=== PATIENT | male | born 1945 | race Caucasian/White ===

== ENCOUNTER 2017-11-05 08:28 | Inpatient (IN) | payer MEDICARE ==
[~2017-11-05] VITALS: Ht 185.4 cm; Wt 83.3 kg
--- NOTE | ~2017-11-05 | HEMODYNAMI ---
PATIENT:BERNARDO TRUJILLO MEDICAL RECORD: [id number] : 47 LOCATION:[facility] D.2121 ADMISSION DATE: 11/06/17 Generatedon:11/08/20179:57 Patient name: BERNARDO TRUJILLO Patient #: [id number] SSN: D OB: 1945 Date of study: 11/08/2017 Page: Of Hemodynamic Procedure Report Patient Data Patient Demographics Procedure consent was obtained First Name: BERNARDO Gender: Male Last Name: RONNIE : 1945 [facility] Initial: L Age: 72 year(s) Patient #: [id number] Race: Unknown Additional ID: [id number] Contact details Address: [address] [place] [address] [facility] State: [place] City: [place] Zip code: [address] Past Medical History Allergies Allergen Reaction Date Comments Reported Sulfa drugs 11/08/2017 Codeine 11/08/2017 Admission Admission Data Admission Date: 11/06/2017 Admission Time: 15:08 Room #: 2121 Lab Results Lab Result Date: 11/08/2017 Lab Result Time: 0:00 Biochemistry Name Units Result Min Max BUN mg/dl 24 --(----)-* 7 18 Creatinine mg/dl 1.5 --(----)-* 0.6 1.3 CBC Name Units Result Min Max Hemoglobin g/dl 16.2 --(--*-)-- 13.5 17.5 Procedure Procedure Types Cath Procedure Diagnostic Procedure LHC Coronaries w/Grafts Aortic Root Angiography PCI Procedure AMI/SVG/QUARTER DOPER PTCA or Stent SVG-BMS/JEMMA Initial Procedure Description Procedure Date Procedure Date: 11/08/2017 Procedure Start Time: 9:14 Procedure End Time: 9:57 Procedure Staff Name Function Shant Arora MD Performing Physician Honorio Sawyer RT Monitor Diana Bateman RT Scrub Jag Rivera RN Nurse Jeffrey Spencer RN Endband Sizer Procedure Data Cath Procedure Fluoroscopy Diagnostic fluoroscopy Total fluoroscopy Time: 8.9 time: 8.9 min min Diagnostic fluoroscopy Total fluoroscopy dose: dose: 1418 mGy 1418 mGy Contrast Material Contrast Material Type Amount (ml) Isovue 300 149 Entry Location Entry Primary Successful Side Size Upsize Upsize Entry Closure Succes sful Closure Location (Fr) 1 (Fr) 2 (Fr) Remarks Device Remarks Femoral Right 5 Fr 6 Fr Exoseal artery Short Diagnostic catheters Device Type Used For End Catheter Placement MULTIPACK JL 4.0 5Fr Left Coronary catheter Angiography DIAGNOSTIC JL 5 5Fr Left Coronary catheter ([id number]) Angiography DIAGNOSTIC AR MOD 5Fr SVG Angiography Catheter ([id number]) DIAGNOSTIC AR 2 MOD 5 Fr SVG Angiography catheter ([id number]) DIAGNOSTIC IM 5Fr SVG Angiography catheter ([id number]) MULTIPACK Pigtail 5 Fr LV Angiography catheter Procedure Complications No complications Procedure Medications Medication Administration Route Dosage 0.9% NaCl I.V. 100 ml/hr Oxygen NC 2 l/min Heparin Flush Bag added to field 2 bags (1000units/500ml NS) Lidocaine 2% added to field 20 Versed I.V. 1 mg Fentanyl I.V. 50 mcg Versed I.V. 1 mg Fentanyl I.V. 50 mcg Versed I.V. 1 mg Versed I.V. 1 mg Heparin Bolus I.V. 8200 units Plavix P.O. 600 mg Hemodynamics Rest HGB: 16.2 (g/dl) Heart Rate: 86 (bpm) Snapshots Pre Cath Intra NCS Post Cath Vital Signs Time Heart Resp SPO2 etCO2 NIBP Rhythm Pain Sedation Rate (ipm) (%) (mmHg) (mmHg) Status Level (bpm) 9:03:54 89 28 98 0 106/66(92) Paced 0 (11) 10(A) , No pain 9:09:09 88 13 97 0 99/58(79) Paced 0 (11) 10(A) , No pain 9:13:48 85 21 97 0 101/57(76) Paced 0 (11) 10(A) , No pain 9:18:28 86 16 93 0 96/52(83) Paced 0 (11) 10(A) , No pain 9:23:09 90 13 93 0 102/56(70) NSR 0 (11) 10(A) , No pain 9:27:50 90 12 96 0 107/60(69) NSR 0 (11) 10(A) , No pain 9:32:32 91 13 96 0 96/55(74) NSR 0 (11) 10(A) , No pain 9:37:13 90 13 96 0 104/58(77) NSR 0 (11) 10(A) , No pain 9:41:54 90 21 97 0 95/54(72) NSR 0 (11) 10(A) , No pain 9:46:32 91 17 95 0 98/62(68) NSR 0 (11) 10(A) , No pain 9:51:48 89 27 96 0 97/51(72) NSR 0 (11) 10(A) , No pain Medications Time Medication Route Dose Verified Delivered Reason Notes Effectiveness by by 9:12:16 0.9% NaCl I.V. 100 Jag Jag Per physician ml/hr Nicole Rivera RN RN 9:12:26 Oxygen NC 2 Jag Jag Per physician l/min Nicole Rivera RN RN 9:12:40 Heparin Flush added 2 Jag Jag used for Bag to bags Nicole Rivera procedure (1000units/500ml RN RN NS) 9:12:51 Lidocaine 2% added 20ml Jag Jag for local to vial Lorsusan Rivera anesthetic field RN RN 9:13:00 Versed I.V. 1 mg Jag Jag for sedation Nicole Rivera RN RN 9:13:09 Fentanyl I.V. 50 Jag Jag for sedation mcg Nicole Rivera RN RN 9:16:43 Versed I.V. 1 mg Jag Jag for sedation Nicole Rivera RN RN 9:16:49 Fentanyl I.V. 50 Jag Jag for sedation mcg Nicole Rivera RN RN 9:18:33 Versed I.V. 1 mg Jag Jag for sedation Nicole Rivera RN RN 9:35:25 Versed I.V. 1 mg Jag Jag for sedation Nicole Rivera RN RN 9:44:14 Heparin Bolus I.V. 8,200 Jag Jag for units Nicole Rivera anticoagulation RN RN 9:56:46 Plavix P.O. 600 Jag Jag for mg Nicole Rivera antiplatelet RN RN therapy Procedure Log Time Note 8:50:54 Jeffrey Spencer RN sent for patient. Start room use. 8:55:29 Signed procedure consent form obtained from patient. 8:56:09 Time tracking: Regular hours (M-F 7:00 - 5:00) 8:56:12 Plan of Care:Hemodynamics will remain stable., Cardiac rhythm will remain stable., Comfort level will be maintained., Respiratory function will remain adequate., Patient/ family verbilizes understanding of procedure., Procedure tolerated without complication., Recovers from procedure without complications.. 8:57:41 Patient received from Med II to CCL 1 Alert and oriented. Tansferred to table in Supine position. 8:57:42 Warm blankets applied, and nancy hugger turned on for patient comfort. 8:57:43 Correct patient and procedure confirmed by team. 8:57:44 ECG and BP/O2 sat monitors applied to patient. 9:01:53 Vital chart was started 9:03:42 Baseline sample Acquired. 9:03:45 Rhythm: sinus rhythm 9:03:46 Full Disclosure recording started 9:04:03 H&P Date Dictated: 11/07/2017 Within 30 days and on chart.. 9:04:04 Pre-procedure instructions explained to patient. 9:04:04 Pre-op teaching completed and patient verbalized understanding. 9:04:20 Family unavailable. 9:04:24 Patient NPO since Midnight. 9:04:33 Patient allergic to Sulfa drugs 9:04:39 Patient allergic to Codeine 9:04:41 Is the patient allergic to Iodine/contrast media? No. 9:04:46 Is patient on blood thinner?Yes 9:05:40 Use device set Femoral Dx 9:05:41 ACIST Syringe (10843) opened to sterile field. 9:05:41 Bag Decanter (2002) opened to sterile field. 9:05:41 Medline Cath Pack ([id number]) opened to sterile field. 9:05:42 DIAGNOSTIC WIRE .035 260cm J wire (688624) opened to sterile field. 9:05:43 ACIST Hand Control (96762) opened to sterile field. 9:05:44 ACIST Manifold (21831) opened to sterile field. 9:05:44 DIAGNOSTIC Multipack 5Fr catheter set ([id number]) opened to sterile field. 9:05:45 Tegaderm 4 x 4 (1626W) opened to sterile field. 9:05:48 SHEATH Prelude 5Fr 0.035 (EEG-5X-42-035) opened to sterile field. 9:06:22 Patient diabetic? No. 9:06:24 ----Pre-sedation anethsthesia assessment.---- 9:06:26 Previous problem with sedation/anesthesia? No ? 9:06:28 Snore? Yes 9:06:30 Sleep apnea? No 9:06:31 Deviated septum? No 9:06:33 Opens mouth fully? Yes 9:06:35 Sticks out tongue? Yes 9:06:37 Airway obstruction? No ? 9:06:40 Dentures? Yes out 9:07:02 Pre procedure: right dorsailis pedis pulse 1+ Palpable, but thready & weak; easily obliterated 9:07:08 Patient pain scale 0/10 ?. 9:07:26 IV patent on arrival in left hand with 0.9% NaCl at 10ml/hr. 9:10:08 Lab Result : BUN 24 mg/dl 9:10:08 Lab Result : Hemoglobin 16.2 g/dl 9:10:08 Lab Result : Creatinine 1.5 mg/dl 9:10:13 Lab results completed and on chart. 9:10:16 Right groin area was prepped with chlora-prep and draped in sterile fashion 9:10:17 Alarms reviewed by R. N. 9:10:18 Sharps counted by scrub and verified by R.N. 9:10:21 Physician arrived 9:10:21 --------ALL STOP TIME OUT------ 9:10:22 Final Timeout: patient, procedure, and site verified with staff and physician. All members of the team are in agreement. 9:10:23 Right groin site verified by team. 9:10:26 Physical assessment completed. ASA score P 2 - A patient with mild systemic disease as per Shant Arora MD. 9:10:29 Sedation plan: IV Moderate Sedation Medication:Versed, Fentanyl 9:12:16 0.9% NaCl 100 ml/hr I.V. was administered by Jag Rivera RN; Per physician; 9:12:26 Oxygen 2 l/min NC was administered by Jag Rivera RN; Per physician; 9:12:40 Heparin Flush Bag (1000units/500ml NS) 2 bags added to field was administered by Jag Rivera RN; used for procedure; 9:12:51 Lidocaine 2% 20ml vial added to field was administered by Jag Rivera RN; for local anesthetic; 9:13:00 Versed 1 mg I.V. was administered by Jag Rivera RN; for sedation; 9:13:09 Fentanyl 50 mcg I.V. was administered by Jag Rivera RN; for sedation; 9:14:25 Procedure started. 9:14:32 Local anesthetic to right femoral artery with Lidocaine 2% by Shant Arora MD.INITIAL ACCESS ONLY 9:14:41 A 5 Fr sheath was inserted into the Right Femoral artery 9:16:43 Versed 1 mg I.V. was administered by Jag Rivera RN; for sedation; 9:16:49 Fentanyl 50 mcg I.V. was administered by Jag Rivera RN; for sedation; 9:18:29 Zero performed for pressure channel P1 9:18:33 Versed 1 mg I.V. was administered by Jag Rivera RN; for sedation; 9:20:18 A MULTIPACK JL 4.0 5Fr catheter was advanced over the wire and used for Left Coronary Angiography. 9:20:55 Catheter removed. 9:21:07 A DIAGNOSTIC JL 5 5Fr catheter ([id number]) was advanced over the wire and used for Left Coronary Angiography. 9:22:42 LCA angiography performed. 9:22:44 Catheter removed. 9:23:05 A DIAGNOSTIC AR MOD 5Fr Catheter ([id number]) was advanced over the wire and used for SVG Angiography. 9:24:10 RCA angiography performed. 9:24:33 SVG to RCA angiography performed. 9:25:46 SVG to Diag angiography performed. 9:26:18 SVG to LAD angiography performed. 9:28:17 Catheter removed. 9:28:50 A DIAGNOSTIC AR 2 MOD 5 Fr catheter ([id number]) was advanced over the wire and used for SVG Angiography. 9:32:00 SVG to LAD angiography performed. 9:34:59 Catheter removed. 9:35:10 A DIAGNOSTIC IM 5Fr catheter ([id number]) was advanced over the wire and used for SVG Angiography. 9:35:25 Versed 1 mg I.V. was administered by Jag Lorigan RN; for sedation; 9:35:52 GONSALVES to LAD angiography performed. 9:36:09 GONSALVES to LAD angiography performed. 9:37:18 Catheter removed. 9:37:28 A MULTIPACK Pigtail 5 Fr catheter was advanced over the wire and used for LV Angiography. 9:37:36 Aortic Root visualized 9:37:51 Procedure type changed to Cath procedure, Diagnostic procedure, LHC, Coronaries w/Grafts, Aortic Root Angiography, PCI procedure, AMI/SVG/QUARTER DOPER PTCA or Stent, SVG-BMS/JEMMA Initial 9:38:40 Catheter removed. 9:42:07 SHEATH 6Fr Prelude ([id number]) opened to sterile field. 9:42:07 INFLATOR Merit BasixCompak (QY6603) opened to sterile field. 9:42:07 BMW 300cm Flushing 2 J wire (1367005Q) opened to sterile field. 9:42:08 GUIDE 6FR AR 2.0 catheter (SG3BU33) opened to sterile field. 9:42:09 TUBING High Pressure Extension Tubing (Viva Dengi) (XL9522Q) opened to sterile field. 9:42:23 Sheath upsized to a 6 Fr Short. 9:42:34 6 Fr AR 2.0 guide catheter was inserted over the wire 9:42:49 BMW wire advanced. 9:44:14 Heparin Bolus 8,200 units I.V. was administered by Jag Rivera RN; for anticoagulation; 9:50:03 Place stent Inflation Number: 1 A INTEGRITY OTW 3.5 X 12 stent ([id number]) was prepped and advanced across the Aorta Left -> 1st Diag. The stent was deployed at 14 ZULLY for 0:26 (min:sec). 9:50:45 Stent catheter was removed intact over wire. 9:50:46 Wire removed. 9:50:50 Guide catheter removed. 9:50:57 Contrast amount:Isovue 300 149ml. 9:51:04 Sheath removed intact; hemostasis achieved with Exoseal to the Right Femoral artery. 9:51:21 EXOSEAL 6Fr (EX600) opened to sterile field. 9:51:25 Procedure ended.(Physican Out) 9:52:02 Fluoroscopy time 08.90 minutes. 9:52:07 Fluoroscopy dose: 1418 mGy 9:52:07 Flurop Dose total: 1418 9:52:09 Sharps counted by scrub and verified by R.N. 9:52:10 Insertion/operative site no bleeding no hematoma. 9:52:13 Post-op/insertion site Right Femoral artery dressed using a 4 x 4 and Tegaderm. 9:52:17 Post right femoral artery:stable 9:52:18 Post Procedure Pulses reassessed and unchanged 9:52:20 Post procedure: right dorsailis pedis pulse 1+ Palpable, but thready & weak; easily obliterated. 9:52:24 Post procedure rhythm: sinus rhythm 9:52:25 Post procedure instruction explained to patient.Patient verbalizes understanding. 9:52:26 Procedure and supply charges have been captured, reviewed, submitted and are correct. 9:52:49 Procedure Complication : No complications 9:52:53 Vital chart was stopped 9:52:53 See physician's report for complete and final results. 9:53:09 Report given to PCU. 9:53:14 Patient transfered to PCU with Bed. 9:56:46 Plavix 600 mg P.O. was administered by Jag Rivera RN; for antiplatelet therapy; 9:57:12 Procedure ended. 9:57:12 Full Disclosure recording stopped 9:57:20 ACC-PCI Only Patient was given prescriptions, or instructed by Shant Arora MD to start/continue the following medications upon discharge: Plavix 9:57:21 End room use (Document Last) Intervention Summary Intervention Notes Time ActionType Lesion and Equipment Action# Pressure Duration Attributes Used 9:50:03 Place stent Aorta Left INTEGRITY 1 14 00:26 -> 1st Diag OTW 3.5 X 12 stent ([id number]) Device Usage Item Name Manufacture Quantity Catalog Number Hospital Part Current M inimal Lot# / Charge Number Stock Stock Serial# Code ACIST Syringe Acist 1 46485 002725 812664 965700 2 0 (51851) Medical Systems Inc Bag Decanter Microtek 1 559559 45130 296968 5 () Medical Inc. Medline Cath Cardinal 1 [id number] 933975 66792 808362 5 Veros Systems ([id number]) DIAGNOSTIC WIRE [facility] [place] 1 221906 167661 080296 039319 3 0 .035 260cm J wire (023935) ACIST Hand Acist 1 15522 505594 069972 501498 5 Control (25769) Medical Systems Inc ACIST Manifold Acist 1 37471 014220 582446 619588 5 (46036) Medical Systems Inc DIAGNOSTIC Cardinal 1 NO0531 678183 71509 869123 3 0 Multipack 5Fr Health catheter set (GD1009) Tegaderm 4 x 4 3M 1 1626W 809604 069412 752074 5 (1626W) SHEATH Prelude Merit 1 GRO-4G-41-035 746294 254938 642884 5 5Fr 0.035 Medical (HHU-6Z-04-035) MULTIPACK JL Cardinal 1 039968 5 4.0 5Fr Health catheter DIAGNOSTIC JL 5 Cardinal 1 117823O 811810 865339 083412 5 5Fr catheter Health (085543I) DIAGNOSTIC AR Cardinal 1 710239P 297121 247523 676221 1 5 MOD 5Fr Health Catheter (604695H) DIAGNOSTIC AR 2 Cardinal 1 [id number] 413451 056114 057565 2 0 MOD 5 Fr Health catheter (930800P) DIAGNOSTIC IM Cardinal 1 155082I 352615 425098 171438 5 5Fr catheter Health (275946G) MULTIPACK Cardinal 1 955350 5 Pigtail 5 Fr Health catheter SHEATH 6Fr Merit 1 [id number] 106472 565931 603558 5 Prelude Medical ([id number]) INFLATOR Merit Merit 1 IC2942 784149 157815 394184 1 5 BasixData Virtuality Medical (HE7102) BMW 300cm Licea 1 [id number] 803468 301145 581551 5 Flushing 2 J Vascular wire (0039671U) GUIDE 6FR AR Medtronic 1 [id number] 552629 40190 993268 1 2.0 catheter (PC0BK64) TUBING High Merit 1 [id number] 784217 57246 612308 1 0 Pressure Medical Extension Tubing (Arora) (UL3163P) INTEGRITY OTW Medtronic 1 [id number] 506634 705290 3 [id number] 3.5 X 12 stent ([id number]) EXOSEAL 6Fr Cardinal 1 EX600 791005 318660 969090 1 0 (EX600) Health Signature Audit [place] Stage Time Signature Unsigned Intra-Procedure 11/08/2017 Honorio Sawyer RT(R) 9:57:47 AM Signatures Monitor : Honorio Sawyer RT Signature : Date : Time : [address] [address]
[~2017-11-05 08:28] MED LIST: ACETAMINOPHEN500 M1 PO; ALDACTONE25 MG PO; ALTACE5 MG PO; APRESOLINE10 MG PO; BAYER CHEWABLE81 MG PO; BISCOLAX10 MG/SUPP RC; BOUDREAUXS113 GM TP; BUMEX 1 MG TAB1 MG PO; CHLORASEPTIC20 ML PO; CORDARONE200 MG PO; COUMADIN10 MG PO; COUMADIN5 MG PO; COUMADIN7.5 MG PO; D5W 1000 ML I1000 ML IV; DEXILANT60 MG PO; DUONEB 2.5-0.5 M3 ML NEB; FOLBIC; IPRAT-ALBUT 0.5-3 ML NEB; LACTINEX C1 TAB.CHEW PO; LEXAPRO20 MG PO; LOMOTIL TABLET1 TAB PO; LOVENOX80 MG/0.8 SQ; MIRALAX17 GM PO; NARCAN INJ0.4 MG/ML IV; NORCO 10/325 TA1 TA1 PO; ONDANSETRON4 MG/2 M3 IV; PLAVIX75 MG PO; PROTONIX40 MG PO; SENOKOT-S TABLE1 TAB PO; TRICOR145 MG PO; TYLENOL650 MG RC; TYLOX 5/500 CAP1 CAP PO; XANAX0.5 MG PO; XANAX1 MG PO
[2017-11-05 09:00] VITALS: BP 152/68
[2017-11-05 09:51] LABS: BASOPHILS 0.3 % (0-2); EOSINOPHILS 0 % (0-7); HEMATOCRIT 48.8 % (42.0-54.0); HEMOGLOBIN 16.7 g/dL (13.5-17.5); IMMATURE GRANULOCYTES 0.2 % (0-5); LYMPHOCYTES 9.5 % (15-50); MCH 30.8 pg (26.0-34.0); MCHC 34.2 g/dL (31.0-37.0); MEAN PLATELET VOLUME 10.2 fL (7.4-10.4); MONOCYTES 8.7 % (2-11); NEUTROPHILS 81.3 % (40-80); RBC 5.42 10x6/uL (4.20-6.10); RDW 15.5 % (11.5-14.5)
[2017-11-05 09:53] LABS: PLATELET COUNT 339 10x3/uL (130-400)
[2017-11-05 10:00] VITALS: BP 161/76
[2017-11-05 10:07] LABS: ALBUMIN 3.9 g/dL (3.4-5.0); ALKALINE PHOSPHATASE 80 U/L (46-116); ALT (SGPT) 17 U/L (10-68); BILIRUBIN - TOTAL 0.82 mg/dL (0.2-1.3); CALC OSMOLALITY 289 mosm/kg (275-300); CALCIUM 8.9 mg/dL (8.5-10.1); CHLORIDE - SERUM 105 mmol/L (98-107); CREATININE - SERUM 1.5 mg/dL (0.6-1.3); GLUCOSE 141 mg/dL (74-106); POTASSIUM - SERUM 3.5 mmol/L (3.5-5.1); PROTEIN - SERUM 7.9 g/dL (6.4-8.2); SODIUM 144 mmol/L (136-145); UREA NITROGEN 16 mg/dL (7-18); eGFR NON AFRICAN AMERICAN 49 mL/min (90-120)
[2017-11-05 10:13] LABS: CREATINE KINASE 97 UL (21-232); MAGNESIUM - SERUM 1.7 mg/dL (1.8-2.4); PRO BNP 6345 pg/mL (0-125); TROPONIN-I < 0.017 ng/mL (0.000-0.060)
[2017-11-05 11:00] VITALS: BP 141/67
[2017-11-05 11:12] LABS: APPEARANCE HAZY (CLEAR); BACTERIA FEW /hpf (NONE SEEN); BILIRUBIN NEGATIVE (NEGATIVE); COLOR YELLOW (YELLOW); EPITHELIAL CELLS OCC /hpf (0-5); GLUCOSE NEGATIVE (NEGATIVE); KETONE SMALL mg/dL (NEGATIVE); NITRITE NEGATIVE (NEGATIVE); PROTEIN TRACE mg/dL (NEGATIVE); SPECIFIC GRAVITY 1.015 (1.005-1.020); WHITE CELLS - URINE OCC /hpf (0-5)
[2017-11-05 11:13] LABS: MUCUS >1+ /lpf (NONE SEEN)
[2017-11-05 14:25] VITALS: BP 133/63; BMI 23.8
[2017-11-05 18:35] LABS: CHOL - HDL RATIO 3.8 ratio (2.3-4.9); LDL-HDL RATIO 2.5 ratio (1.5-3.5)
[2017-11-05 19:13] LABS: CKMB 3.2 U/L (0.0-3.6); CREATINE KINASE 184 UL (21-232); TROPONIN-I 0.017 ng/mL (0.000-0.060)
[2017-11-05 19:54] LABS: INR 8.22 (0.85-1.17); PROTIME 66.2 SECONDS (11.6-15.0)
[2017-11-05 21:56] VITALS: BP 128/64
[2017-11-05 23:37] LABS: CKMB 3.6 U/L (0.0-3.6); CREATINE KINASE 171 UL (21-232); TROPONIN-I 0.019 ng/mL (0.000-0.060)
[2017-11-06 05:42] VITALS: BP 107/62
[2017-11-06 05:46] LABS: BASOPHILS 0.3 % (0-2); EOSINOPHILS 0.3 % (0-7); HEMATOCRIT 52.5 % (42.0-54.0); HEMOGLOBIN 17.7 g/dL (13.5-17.5); IMMATURE GRANULOCYTES 0.3 % (0-5); LYMPHOCYTES 14.7 % (15-50); MCH 31.1 pg (26.0-34.0); MCHC 33.7 g/dL (31.0-37.0); MONOCYTES 11.4 % (2-11); PLATELET COUNT 356 10x3/uL (130-400); RDW 15.8 % (11.5-14.5)
[2017-11-06 05:59] LABS: INR 2.32 (0.85-1.17); PROTIME 24.4 SECONDS (11.6-15.0)
[2017-11-06 06:01] LABS: ALBUMIN 3.7 g/dL (3.4-5.0); ALKALINE PHOSPHATASE 76 U/L (46-116); ALT (SGPT) 16 U/L (10-68); BILIRUBIN - TOTAL 0.68 mg/dL (0.2-1.3); CALC OSMOLALITY 282 mosm/kg (275-300); CALCIUM 8.4 mg/dL (8.5-10.1); CARBON DIOXIDE 31.5 mmol/L (21.0-32.0); CHLORIDE - SERUM 103 mmol/L (98-107); CKMB 3.6 U/L (0.0-3.6); CREATINE KINASE 175 UL (21-232); GLUCOSE 106 mg/dL (74-106); POTASSIUM - SERUM 3.5 mmol/L (3.5-5.1); PROTEIN - SERUM 7.9 g/dL (6.4-8.2); SODIUM 141 mmol/L (136-145); TROPONIN-I 0.017 ng/mL (0.000-0.060); UREA NITROGEN 19 mg/dL (7-18); eGFR NON AFRICAN AMERICAN 70 mL/min (90-120)
[2017-11-06 06:12] LABS: CREATININE - SERUM 1.1 mg/dL (0.6-1.3); MAGNESIUM - SERUM 2.3 mg/dL (1.8-2.4)
[2017-11-06 06:23] LABS: MCV 92.1 fL (80.0-100.0)
[2017-11-06 07:47] VITALS: BP 127/66
[2017-11-06 10:05] VITALS: Ht 185.4 cm; Wt 83.3 kg
[2017-11-06 11:00] VITALS: BP 119/72
[2017-11-06 20:00] VITALS: BP 115/67
[2017-11-07 00:20] VITALS: BP 123/54
[2017-11-07 04:00] VITALS: BP 108/63
[2017-11-07 05:40] LABS: BASOPHILS 0.2 % (0-2); EOSINOPHILS 1.2 % (0-7); HEMATOCRIT 50.1 % (42.0-54.0); HEMOGLOBIN 16.5 g/dL (13.5-17.5); IMMATURE GRANULOCYTES 0.2 % (0-5); LYMPHOCYTES 14.4 % (15-50); MCH 30.5 pg (26.0-34.0); MCHC 32.9 g/dL (31.0-37.0); MCV 92.6 fL (80.0-100.0); MONOCYTES 11.7 % (2-11); NEUTROPHILS 72.3 % (40-80); PLATELET COUNT 358 10x3/uL (130-400); RBC 5.41 10x6/uL (4.20-6.10); RDW 16.2 % (11.5-14.5); WBC 16.7 10x3/uL (4.8-10.8)
[2017-11-07 05:58] LABS: INR 2.02 (0.85-1.17); PROTIME 22.3 SECONDS (11.6-15.0)
[2017-11-07 06:19] LABS: ALBUMIN 3.4 g/dL (3.4-5.0); ANION GAP 11.2 mmol/L (8-16); BILIRUBIN - TOTAL 0.83 mg/dL (0.2-1.3); CALCIUM 8.1 mg/dL (8.5-10.1); CARBON DIOXIDE 32.8 mmol/L (21.0-32.0); CREATININE - SERUM 1.4 mg/dL (0.6-1.3); MAGNESIUM - SERUM 2.2 mg/dL (1.8-2.4); PROTEIN - SERUM 7.3 g/dL (6.4-8.2)
[2017-11-07 07:41] VITALS: BP 111/60
[2017-11-07 11:36] VITALS: BP 116/51
[2017-11-07 15:01] VITALS: BP 121/56
[2017-11-07 19:04] LABS: BASOPHILS 0.2 % (0-2); EOSINOPHILS 1.5 % (0-7); HEMATOCRIT 49.6 % (42.0-54.0); HEMOGLOBIN 16.5 g/dL (13.5-17.5); IMMATURE GRANULOCYTES 0.2 % (0-5); LYMPHOCYTES 13.6 % (15-50); MCHC 33.3 g/dL (31.0-37.0); MCV 93.2 fL (80.0-100.0); MEAN PLATELET VOLUME 10.7 fL (7.4-10.4); MONOCYTES 12.2 % (2-11); NEUTROPHILS 72.3 % (40-80); PLATELET COUNT 312 10x3/uL (130-400); RBC 5.32 10x6/uL (4.20-6.10); RDW 15.9 % (11.5-14.5); WBC 16.8 10x3/uL (4.8-10.8)
[2017-11-07 20:19] VITALS: BP 108/69
[2017-11-07 20:59] LABS: ANION GAP 13.1 mmol/L (8-16); CALCIUM 8.2 mg/dL (8.5-10.1); CARBON DIOXIDE 27.7 mmol/L (21.0-32.0); CREATININE - SERUM 1.5 mg/dL (0.6-1.3); POTASSIUM - SERUM 3.8 mmol/L (3.5-5.1)
[2017-11-08] VITALS: BP 108/55
[2017-11-08 04:00] VITALS: BP 112/48
[2017-11-08 05:40] LABS: BASOPHILS 0.3 % (0-2); EOSINOPHILS 1.5 % (0-7); HEMATOCRIT 48.9 % (42.0-54.0); HEMOGLOBIN 16.2 g/dL (13.5-17.5); IMMATURE GRANULOCYTES 0.3 % (0-5); LYMPHOCYTES 13.6 % (15-50); MCH 30.9 pg (26.0-34.0); MCHC 33.1 g/dL (31.0-37.0); MCV 93.3 fL (80.0-100.0); MEAN PLATELET VOLUME 10.8 fL (7.4-10.4); MONOCYTES 10.6 % (2-11); NEUTROPHILS 73.7 % (40-80); PLATELET COUNT 332 10x3/uL (130-400); RBC 5.24 10x6/uL (4.20-6.10); RDW 15.9 % (11.5-14.5); WBC 15.7 10x3/uL (4.8-10.8)
[2017-11-08 05:52] LABS: INR 1.54 (0.85-1.17)
[2017-11-08 05:57] LABS: ALBUMIN 3.4 g/dL (3.4-5.0); ANION GAP 9.1 mmol/L (8-16); BILIRUBIN - TOTAL 0.96 mg/dL (0.2-1.3); CALCIUM 8.3 mg/dL (8.5-10.1); CARBON DIOXIDE 32.7 mmol/L (21.0-32.0); CREATININE - SERUM 1.5 mg/dL (0.6-1.3); MAGNESIUM - SERUM 2.1 mg/dL (1.8-2.4); POTASSIUM - SERUM 3.8 mmol/L (3.5-5.1); PROTEIN - SERUM 7.3 g/dL (6.4-8.2)
[2017-11-08 08:06] VITALS: BP 120/70
[2017-11-08 15:21] VITALS: BP 133/56
[2017-11-08 20:00] VITALS: BP 110/63
[2017-11-09] VITALS: BP 117/72
[2017-11-09 04:00] VITALS: BP 117/62
[2017-11-09 05:38] LABS: BASOPHILS 0.4 % (0-2); EOSINOPHILS 1.8 % (0-7); HEMOGLOBIN 15.1 g/dL (13.5-17.5); IMMATURE GRANULOCYTES 0.3 % (0-5); LYMPHOCYTES 11.7 % (15-50); MCH 30.7 pg (26.0-34.0); MCHC 32.8 g/dL (31.0-37.0); MCV 93.5 fL (80.0-100.0); MEAN PLATELET VOLUME 10.6 fL (7.4-10.4); MONOCYTES 10.5 % (2-11); NEUTROPHILS 75.3 % (40-80); PLATELET COUNT 326 10x3/uL (130-400); RBC 4.92 10x6/uL (4.20-6.10); RDW 15.9 % (11.5-14.5); WBC 15.9 10x3/uL (4.8-10.8)
[2017-11-09 06:10] LABS: ALBUMIN 3.1 g/dL (3.4-5.0); ANION GAP 11.6 mmol/L (8-16); BILIRUBIN - TOTAL 0.87 mg/dL (0.2-1.3); CALCIUM 8.1 mg/dL (8.5-10.1); CARBON DIOXIDE 26.2 mmol/L (21.0-32.0); CREATININE - SERUM 1.3 mg/dL (0.6-1.3); MAGNESIUM - SERUM 2.2 mg/dL (1.8-2.4); POTASSIUM - SERUM 3.8 mmol/L (3.5-5.1); PROTEIN - SERUM 6.7 g/dL (6.4-8.2)
[2017-11-09 06:44] LABS: INR 1.34 (0.85-1.17); PROTIME 16.1 SECONDS (11.6-15.0)
[2017-11-09 08:11] VITALS: BP 131/69
[2017-11-09 11:31] VITALS: BP 110/56
[2017-11-09 15:29] VITALS: BP 107/52
[2017-11-09] MEDS ORDERED: PLAVIX75 MG PO (15:43)
[2017-11-09] MEDS ORDERED: COUMADIN5 MG PO (15:43)
== END 2017-11-09 18:22 | DRG 248 ==
LOC: D.ER 08:28 → D.EDHOLD 12:41 → D.M2 12:41 → OBSVTIME 12:42 → D.M2 13:26 → D.SDCHOLD 11-07 06:21 → D.M2 11-07 06:21 → D.SDCHOLD 11-07 07:05 → D.M2 11-07 07:05
PROVIDERS: Emergency Medicine; Family Medicine; Internal Medicine Cardiovascular Disease
PROC: B2121ZZ Fluoroscopy of Single Coronary Artery Bypass Graft using Low Osmolar Contrast (ICD-10-PCS; 2017-11-08)
PROC: B2111ZZ Fluoroscopy of Multiple Coronary Arteries using Low Osmolar Contrast (ICD-10-PCS; 2017-11-08)
PROC: 02703DZ Dilation of Coronary Artery, One Artery with Intraluminal Device, Percutaneous Approach (ICD-10-PCS; principal; 2017-11-08 08:30)
PROC: 4A023N7 Measurement of Cardiac Sampling and Pressure, Left Heart, Percutaneous Approach (ICD-10-PCS; 2017-11-08 08:30)
DX: I25.10 Atherosclerotic heart disease of native coronary artery without angina pectoris (principal); I50.21 Acute systolic (congestive) heart failure; I11.0 Hypertensive heart disease with heart failure; G62.9 Polyneuropathy, unspecified; Z87.891 Personal history of nicotine dependence; Z95.5 Presence of coronary angioplasty implant and graft; Z95.1 Presence of aortocoronary bypass graft; E03.9 Hypothyroidism, unspecified; G47.33 Obstructive sleep apnea (adult) (pediatric); F41.8 Other specified anxiety disorders; Z95.0 Presence of cardiac pacemaker; Z79.01 Long term (current) use of anticoagulants; D72.829 Elevated white blood cell count, unspecified

== ENCOUNTER 2017-11-14 18:29 | Inpatient (IN) | payer MEDICARE ==
[2017-11-14] VITALS (11 sets, daily range): BP systolic 83–116; BP diastolic 52–91; BMI 25.2
[~2017-11-14] VITALS: Ht 185.4 cm; Wt 88.7 kg
[2017-11-14] MEDS ORDERED: BUMEX 1 MG TAB1 MG PO (21:26)
[2017-11-14 23:18] LABS: CKMB 3.7 U/L (0.0-3.6); CREATINE KINASE 129 UL (21-232)
[2017-11-14 23:24] LABS: TROPONIN-I 2.259 ng/mL (0.000-0.060)
[2017-11-15] VITALS (29 sets, daily range): BP systolic 77–163; BP diastolic 47–90; BMI 25.6
[2017-11-15 04:42] LABS: HEMOGLOBIN 15.1 g/dL (13.5-17.5); MCH 31.5 pg (26.0-34.0); MCHC 34.3 g/dL (31.0-37.0); MCV 91.9 fL (80.0-100.0); PLATELET COUNT 293 10x3/uL (130-400); RBC 4.79 10x6/uL (4.20-6.10); RDW 15.5 % (11.5-14.5); WBC 29.2 10x3/uL (4.8-10.8)
[2017-11-15 05:13] LABS: ALBUMIN 2.7 g/dL (3.4-5.0); ALKALINE PHOSPHATASE 193 U/L (46-116); ALT (SGPT) 258 U/L (10-68); BILIRUBIN - TOTAL 1.39 mg/dL (0.2-1.3); CALC OSMOLALITY 293 mosm/kg (275-300); CALCIUM 7.5 mg/dL (8.5-10.1); CARBON DIOXIDE 29.2 mmol/L (21.0-32.0); CHLORIDE - SERUM 107 mmol/L (98-107); CKMB 5.2 U/L (0.0-3.6); CREATINE KINASE 224 UL (21-232); GLUCOSE 129 mg/dL (74-106); POTASSIUM - SERUM 3.1 mmol/L (3.5-5.1); PROTEIN - SERUM 6.3 g/dL (6.4-8.2); SODIUM 144 mmol/L (136-145); UREA NITROGEN 26 mg/dL (7-18); eGFR NON AFRICAN AMERICAN 35 mL/min (90-120)
[2017-11-15 05:15] LABS: TROPONIN-I 2.385 ng/mL (0.000-0.060)
[2017-11-15 05:34] LABS: LYMPHOCYTES 3 % (15-50); MONOCYTES 3 % (2-11); NEUTROPHILS 79 % (40-80); PLATELET ESTIMATE NORMAL
[2017-11-15 11:06] LABS: CKMB 6.4 U/L (0.0-3.6); CREATINE KINASE 413 UL (21-232)
[2017-11-16] VITALS (24 sets, daily range): BP systolic 103–169; BP diastolic 61–103
[2017-11-16 03:09] LABS: BASOPHILS 0 % (0-2); EOSINOPHILS 0.1 % (0-7); HEMATOCRIT 39.7 % (42.0-54.0); HEMOGLOBIN 13.4 g/dL (13.5-17.5); IMMATURE GRANULOCYTES 0.4 % (0-5); LYMPHOCYTES 4.5 % (15-50); MCH 30.5 pg (26.0-34.0); MCHC 33.8 g/dL (31.0-37.0); MCV 90.2 fL (80.0-100.0); MEAN PLATELET VOLUME 10.5 fL (7.4-10.4); MONOCYTES 5.5 % (2-11); NEUTROPHILS 89.5 % (40-80); PLATELET COUNT 269 10x3/uL (130-400); RDW 15.3 % (11.5-14.5); WBC 20.9 10x3/uL (4.8-10.8)
[2017-11-16 03:40] LABS: ALBUMIN 2.3 g/dL (3.4-5.0); ANION GAP 10.3 mmol/L (8-16); BILIRUBIN - TOTAL 1.08 mg/dL (0.2-1.3); CALCIUM 7.9 mg/dL (8.5-10.1); CARBON DIOXIDE 25.8 mmol/L (21.0-32.0); CREATININE - SERUM 1.4 mg/dL (0.6-1.3); PHOSPHOROUS 3.4 mg/dL (2.5-4.9); POTASSIUM - SERUM 3.1 mmol/L (3.5-5.1); TROPONIN-I 0.344 ng/mL (0.000-0.060)
[2017-11-16 12:28] LABS: POTASSIUM - SERUM 3.4 mmol/L (3.5-5.1); VANCOMYCIN - TROUGH 14.2 ug/mL (10.0-20.0)
[2017-11-17] VITALS (17 sets, daily range): BP systolic 105–137; BP diastolic 53–71
[2017-11-17 03:20] LABS: BASOPHILS 0.1 % (0-2); EOSINOPHILS 0.8 % (0-7); HEMATOCRIT 41.6 % (42.0-54.0); HEMOGLOBIN 13.7 g/dL (13.5-17.5); IMMATURE GRANULOCYTES 0.3 % (0-5); LYMPHOCYTES 6.4 % (15-50); MCH 30.6 pg (26.0-34.0); MCHC 32.9 g/dL (31.0-37.0); MEAN PLATELET VOLUME 10.9 fL (7.4-10.4); MONOCYTES 6.6 % (2-11); NEUTROPHILS 85.8 % (40-80); PLATELET COUNT 280 10x3/uL (130-400); RBC 4.47 10x6/uL (4.20-6.10); RDW 15.9 % (11.5-14.5)
[2017-11-17 03:22] LABS: MCV 93.1 fL (80.0-100.0); WBC 15.2 10x3/uL (4.8-10.8)
[2017-11-17 03:29] LABS: ALBUMIN 2.2 g/dL (3.4-5.0); BILIRUBIN - TOTAL 0.81 mg/dL (0.2-1.3); CALCIUM 7.8 mg/dL (8.5-10.1); CARBON DIOXIDE 27.7 mmol/L (21.0-32.0); CREATININE - SERUM 1.2 mg/dL (0.6-1.3); PROTEIN - SERUM 6.1 g/dL (6.4-8.2)
[2017-11-17 03:32] LABS: ANION GAP 8.4 mmol/L (8-16); POTASSIUM - SERUM 4.1 mmol/L (3.5-5.1)
[2017-11-17 03:57] LABS: APPEARANCE CLEAR (CLEAR); BACTERIA NONE SEEN /hpf (NONE SEEN); BILIRUBIN NEGATIVE (NEGATIVE); COLOR YELLOW (YELLOW); EPITHELIAL CELLS NSEEN /hpf (0-5); GLUCOSE NEGATIVE (NEGATIVE); KETONE NEGATIVE (NEGATIVE); NITRITE NEGATIVE (NEGATIVE); PROTEIN TRACE mg/dL (NEGATIVE); SPECIFIC GRAVITY 1.015 (1.005-1.020); UROBILINOGEN NORMAL (NORMAL); WHITE CELLS - URINE RARE /hpf (0-5)
[2017-11-18 00:30] VITALS: BP 113/58
[2017-11-18 04:30] VITALS: BP 128/67
[2017-11-18 05:06] LABS: BASOPHILS 0.1 % (0-2); EOSINOPHILS 1.6 % (0-7); HEMATOCRIT 40.7 % (42.0-54.0); HEMOGLOBIN 13.8 g/dL (13.5-17.5); IMMATURE GRANULOCYTES 0.3 % (0-5); LYMPHOCYTES 11.5 % (15-50); MCH 31.2 pg (26.0-34.0); MCHC 33.9 g/dL (31.0-37.0); MCV 92.1 fL (80.0-100.0); MEAN PLATELET VOLUME 11.1 fL (7.4-10.4); MONOCYTES 9.6 % (2-11); NEUTROPHILS 76.9 % (40-80); PLATELET COUNT 278 10x3/uL (130-400); RBC 4.42 10x6/uL (4.20-6.10); RDW 15.5 % (11.5-14.5); WBC 11.6 10x3/uL (4.8-10.8)
[2017-11-18 05:22] LABS: ALBUMIN 2.1 g/dL (3.4-5.0); BILIRUBIN - TOTAL 0.51 mg/dL (0.2-1.3); CALCIUM 7.7 mg/dL (8.5-10.1); CARBON DIOXIDE 27.4 mmol/L (21.0-32.0); CREATININE - SERUM 1.3 mg/dL (0.6-1.3); MAGNESIUM - SERUM 1.8 mg/dL (1.8-2.4); PHOSPHOROUS 2.1 mg/dL (2.5-4.9); PROTEIN - SERUM 5.8 g/dL (6.4-8.2)
[2017-11-18 05:24] LABS: ANION GAP 9.7 mmol/L (8-16); POTASSIUM - SERUM 3.1 mmol/L (3.5-5.1)
[2017-11-18 08:08] VITALS: BP 143/69
[2017-11-18 11:25] VITALS: BP 133/80
[2017-11-18 15:35] VITALS: BP 121/85
[2017-11-18 20:58] VITALS: BP 143/71
[2017-11-19] VITALS: BP 129/63
[2017-11-19 04:25] LABS: BASOPHILS 0.1 % (0-2); EOSINOPHILS 0.2 % (0-7); HEMATOCRIT 43.8 % (42.0-54.0); HEMOGLOBIN 14.6 g/dL (13.5-17.5); IMMATURE GRANULOCYTES 0.5 % (0-5); LYMPHOCYTES 7.4 % (15-50); MCH 30.4 pg (26.0-34.0); MCHC 33.3 g/dL (31.0-37.0); MCV 91.3 fL (80.0-100.0); MONOCYTES 9.1 % (2-11); NEUTROPHILS 82.7 % (40-80); PLATELET COUNT 298 10x3/uL (130-400); RDW 15.2 % (11.5-14.5)
[2017-11-19 04:26] LABS: WBC 17.4 10x3/uL (4.8-10.8)
[2017-11-19 04:30] VITALS: BP 126/65
[2017-11-19 04:50] LABS: ALBUMIN 2.2 g/dL (3.4-5.0); BILIRUBIN - DIRECT 0.16 mg/dL (0.00-0.30); BILIRUBIN - INDIRECT 0.46 mg/dL (0.00-1.00); BILIRUBIN - TOTAL 0.62 mg/dL (0.2-1.3); CALCIUM 7.9 mg/dL (8.5-10.1); CREATININE - SERUM 1.1 mg/dL (0.6-1.3)
[2017-11-19 04:51] LABS: ANION GAP 8.2 mmol/L (8-16); POTASSIUM - SERUM 3.2 mmol/L (3.5-5.1)
[2017-11-19 07:42] VITALS: BP 142/77
[2017-11-19 11:28] VITALS: BP 136/68
[2017-11-19 15:40] VITALS: BP 128/72
[2017-11-19 20:12] VITALS: BP 113/59
[2017-11-20 00:43] VITALS: BP 112/58
[2017-11-20 04:55] LABS: HEMATOCRIT 42.2 % (42.0-54.0); HEMOGLOBIN 13.9 g/dL (13.5-17.5); MCH 30.5 pg (26.0-34.0); MCHC 32.9 g/dL (31.0-37.0); MCV 92.7 fL (80.0-100.0); MEAN PLATELET VOLUME 11.5 fL (7.4-10.4); PLATELET COUNT 304 10x3/uL (130-400); RBC 4.55 10x6/uL (4.20-6.10); RDW 15.3 % (11.5-14.5); WBC 26.5 10x3/uL (4.8-10.8)
[2017-11-20 04:56] LABS: ANION GAP 5.5 mmol/L (8-16); CALCIUM 7.8 mg/dL (8.5-10.1); CARBON DIOXIDE 34.6 mmol/L (21.0-32.0)
[2017-11-20 04:58] LABS: CREATININE - SERUM 1.4 mg/dL (0.6-1.3); POTASSIUM - SERUM 4.1 mmol/L (3.5-5.1)
[2017-11-20 05:14] LABS: LYMPHOCYTES 13 % (15-50); MONOCYTES 13 % (2-11); NEUTROPHILS 69 % (40-80); PLATELET ESTIMATE NORMAL
[2017-11-20 05:51] VITALS: BP 108/61
[2017-11-20 07:49] VITALS: BP 103/62
[2017-11-20 11:05] VITALS: BP 105/64
[2017-11-20 13:57] VITALS: Ht 185.4 cm; Wt 88.7 kg
[2017-11-20 15:41] VITALS: BP 91/47
[2017-11-20 20:43] VITALS: BP 104/55
[2017-11-21 00:22] VITALS: BP 98/58
[2017-11-21 05:24] VITALS: BP 104/53
[2017-11-21 06:29] LABS: BASOPHILS 0.1 % (0-2); EOSINOPHILS 0.7 % (0-7); HEMATOCRIT 40.8 % (42.0-54.0); HEMOGLOBIN 13.3 g/dL (13.5-17.5); IMMATURE GRANULOCYTES 0.4 % (0-5); MCH 30.4 pg (26.0-34.0); MCHC 32.6 g/dL (31.0-37.0); MCV 93.2 fL (80.0-100.0); MEAN PLATELET VOLUME 11.2 fL (7.4-10.4); MONOCYTES 6.6 % (2-11); NEUTROPHILS 84.2 % (40-80); PLATELET COUNT 322 10x3/uL (130-400); RBC 4.38 10x6/uL (4.20-6.10); RDW 15.6 % (11.5-14.5); WBC 22.4 10x3/uL (4.8-10.8)
[2017-11-21 06:44] LABS: ANION GAP 8.3 mmol/L (8-16); CALCIUM 7.9 mg/dL (8.5-10.1); CARBON DIOXIDE 32.6 mmol/L (21.0-32.0); CREATININE - SERUM 1.2 mg/dL (0.6-1.3); POTASSIUM - SERUM 3.9 mmol/L (3.5-5.1)
[2017-11-21 07:45] VITALS: BP 102/55
[2017-11-21 11:24] VITALS: BP 87/48
[2017-11-21 15:38] VITALS: BP 100/58
[2017-11-21 20:43] VITALS: BP 99/52
[2017-11-22 05:17] LABS: BASOPHILS 0.2 % (0-2); EOSINOPHILS 1.3 % (0-7); HEMATOCRIT 38.5 % (42.0-54.0); HEMOGLOBIN 12.4 g/dL (13.5-17.5); IMMATURE GRANULOCYTES 0.6 % (0-5); LYMPHOCYTES 9.2 % (15-50); MCH 30.1 pg (26.0-34.0); MCHC 32.2 g/dL (31.0-37.0); MCV 93.4 fL (80.0-100.0); MEAN PLATELET VOLUME 11.2 fL (7.4-10.4); MONOCYTES 6.6 % (2-11); NEUTROPHILS 82.1 % (40-80); PLATELET COUNT 359 10x3/uL (130-400); RBC 4.12 10x6/uL (4.20-6.10); RDW 15.5 % (11.5-14.5); WBC 17.2 10x3/uL (4.8-10.8)
[2017-11-22 05:27] LABS: ANION GAP 4.8 mmol/L (8-16); CALCIUM 7.7 mg/dL (8.5-10.1); CARBON DIOXIDE 33.1 mmol/L (21.0-32.0); CREATININE - SERUM 1.3 mg/dL (0.6-1.3); POTASSIUM - SERUM 3.9 mmol/L (3.5-5.1)
[2017-11-22 06:33] VITALS: BP 107/54
[2017-11-22 07:59] VITALS: BP 111/52
[2017-11-22 11:17] VITALS: BP 93/56
[2017-11-22 11:50] LABS: INR 1.07 (0.85-1.17); PROTIME 13.5 SECONDS (11.6-15.0)
[2017-11-22 15:26] VITALS: BP 89/41
[2017-11-23 06:23] VITALS: BP 108/75
[2017-11-23 07:54] VITALS: BP 116/55
[2017-11-23 07:54] LABS: HEMATOCRIT 39.6 % (42.0-54.0); LYMPHOCYTES 12.7 % (15-50); MCH 30.7 pg (26.0-34.0); MCHC 32.8 g/dL (31.0-37.0); MCV 93.4 fL (80.0-100.0); MEAN PLATELET VOLUME 11.4 fL (7.4-10.4); NEUTROPHILS 81.6 % (40-80); PLATELET COUNT 305 10x3/uL (130-400); RBC 4.24 10x6/uL (4.20-6.10); RDW 15.5 % (11.5-14.5)
[2017-11-23 07:55] LABS: WBC 11.9 10x3/uL (4.8-10.8)
[2017-11-23 08:01] LABS: ALBUMIN 1.8 g/dL (3.4-5.0); ANION GAP 8.4 mmol/L (8-16); BILIRUBIN - TOTAL 0.3 mg/dL (0.2-1.3); CALCIUM 7.9 mg/dL (8.5-10.1); CARBON DIOXIDE 30.7 mmol/L (21.0-32.0); CREATININE - SERUM 1.2 mg/dL (0.6-1.3); POTASSIUM - SERUM 4.1 mmol/L (3.5-5.1); PROTEIN - SERUM 5.8 g/dL (6.4-8.2)
[2017-11-23 08:02] LABS: INR 1.04 (0.85-1.17); PROTIME 13.2 SECONDS (11.6-15.0)
[2017-11-23 11:04] VITALS: BP 111/62
[2017-11-23 15:01] VITALS: BP 119/64
[2017-11-23 20:00] VITALS: BP 114/60
[2017-11-24 04:00] VITALS: BP 122/60
[2017-11-24 04:37] LABS: BASOPHILS 0.2 % (0-2); EOSINOPHILS 2.4 % (0-7); HEMATOCRIT 39.7 % (42.0-54.0); HEMOGLOBIN 12.7 g/dL (13.5-17.5); IMMATURE GRANULOCYTES 0.5 % (0-5); LYMPHOCYTES 13.6 % (15-50); MCH 30.1 pg (26.0-34.0); MCV 94.1 fL (80.0-100.0); MEAN PLATELET VOLUME 10.2 fL (7.4-10.4); MONOCYTES 8.4 % (2-11); NEUTROPHILS 74.9 % (40-80); RBC 4.22 10x6/uL (4.20-6.10); RDW 15.4 % (11.5-14.5); WBC 12.9 10x3/uL (4.8-10.8)
[2017-11-24 04:41] LABS: INR 1.01 (0.85-1.17); PROTIME 12.9 SECONDS (11.6-15.0)
[2017-11-24 04:55] LABS: ALBUMIN 1.9 g/dL (3.4-5.0); ANION GAP 4.6 mmol/L (8-16); BILIRUBIN - TOTAL 0.27 mg/dL (0.2-1.3); CALCIUM 7.8 mg/dL (8.5-10.1); CARBON DIOXIDE 36.4 mmol/L (21.0-32.0); CREATININE - SERUM 1.2 mg/dL (0.6-1.3); PROTEIN - SERUM 5.9 g/dL (6.4-8.2)
[2017-11-24 05:05] LABS: PLATELET COUNT 453 10x3/uL (130-400)
[2017-11-24 08:07] VITALS: BP 114/56
[2017-11-24 10:54] VITALS: BP 111/61
[2017-11-24 15:11] VITALS: BP 117/57
[2017-11-24 20:26] VITALS: BP 118/57
[2017-11-25 00:58] VITALS: BP 117/54
[2017-11-25 05:15] LABS: BASOPHILS 0.1 % (0-2); EOSINOPHILS 1.4 % (0-7); HEMATOCRIT 39.5 % (42.0-54.0); HEMOGLOBIN 12.9 g/dL (13.5-17.5); IMMATURE GRANULOCYTES 0.4 % (0-5); MCH 30.6 pg (26.0-34.0); MCHC 32.7 g/dL (31.0-37.0); MCV 93.6 fL (80.0-100.0); MEAN PLATELET VOLUME 10.1 fL (7.4-10.4); MONOCYTES 8.5 % (2-11); NEUTROPHILS 77.6 % (40-80); PLATELET COUNT 469 10x3/uL (130-400); RBC 4.22 10x6/uL (4.20-6.10); RDW 15.1 % (11.5-14.5)
[2017-11-25 05:37] LABS: WBC 16.6 10x3/uL (4.8-10.8)
[2017-11-25 05:44] LABS: ALBUMIN 1.9 g/dL (3.4-5.0); ALKALINE PHOSPHATASE 145 U/L (46-116); BILIRUBIN - TOTAL 0.23 mg/dL (0.2-1.3); CALC OSMOLALITY 285 mosm/kg (275-300); CALCIUM 7.9 mg/dL (8.5-10.1); CARBON DIOXIDE 32.1 mmol/L (21.0-32.0); CHLORIDE - SERUM 106 mmol/L (98-107); GLUCOSE 106 mg/dL (74-106); POTASSIUM - SERUM 3.8 mmol/L (3.5-5.1); PROTEIN - SERUM 5.9 g/dL (6.4-8.2); SODIUM 143 mmol/L (136-145); UREA NITROGEN 15 mg/dL (7-18); eGFR NON AFRICAN AMERICAN 78 mL/min (90-120)
[2017-11-25 05:45] LABS: INR 1.04 (0.85-1.17); PROTIME 13.2 SECONDS (11.6-15.0)
[2017-11-25 05:46] LABS: ALT (SGPT) 41 U/L (10-68)
[2017-11-25 06:51] VITALS: BP 123/61
[2017-11-25 09:15] VITALS: BP 137/68
[2017-11-25 12:33] VITALS: BP 128/75
[2017-11-25 17:32] VITALS: BP 118/62
[2017-11-25 21:59] VITALS: BP 120/58
[2017-11-26 04:41] LABS: BASOPHILS 0.2 % (0-2); EOSINOPHILS 1.9 % (0-7); HEMATOCRIT 41.1 % (42.0-54.0); HEMOGLOBIN 13.2 g/dL (13.5-17.5); IMMATURE GRANULOCYTES 0.2 % (0-5); LYMPHOCYTES 12.6 % (15-50); MCH 30.2 pg (26.0-34.0); MCHC 32.1 g/dL (31.0-37.0); MCV 94.1 fL (80.0-100.0); MEAN PLATELET VOLUME 10.1 fL (7.4-10.4); MONOCYTES 8.3 % (2-11); NEUTROPHILS 76.8 % (40-80); PLATELET COUNT 522 10x3/uL (130-400); RBC 4.37 10x6/uL (4.20-6.10); WBC 17.1 10x3/uL (4.8-10.8)
[2017-11-26 04:55] LABS: INR 1.06 (0.85-1.17); PROTIME 13.4 SECONDS (11.6-15.0)
[2017-11-26 05:08] LABS: ALBUMIN 2.1 g/dL (3.4-5.0); ALKALINE PHOSPHATASE 129 U/L (46-116); ALT (SGPT) 38 U/L (10-68); BILIRUBIN - TOTAL 0.49 mg/dL (0.2-1.3); CALC OSMOLALITY 285 mosm/kg (275-300); CALCIUM 8.2 mg/dL (8.5-10.1); CARBON DIOXIDE 36.3 mmol/L (21.0-32.0); CHLORIDE - SERUM 104 mmol/L (98-107); GLUCOSE 104 mg/dL (74-106); POTASSIUM - SERUM 4.3 mmol/L (3.5-5.1); PROTEIN - SERUM 6.4 g/dL (6.4-8.2); SODIUM 143 mmol/L (136-145); UREA NITROGEN 14 mg/dL (7-18); eGFR NON AFRICAN AMERICAN 78 mL/min (90-120)
[2017-11-26 07:16] VITALS: BP 128/67
[2017-11-26 08:31] VITALS: BP 123/61
[2017-11-26 11:13] VITALS: BP 118/58
[2017-11-26 14:53] VITALS: BP 128/66
[2017-11-26 22:07] VITALS: BP 119/66
[2017-11-27 06:18] LABS: BASOPHILS 0.2 % (0-2); EOSINOPHILS 2.3 % (0-7); HEMATOCRIT 39.8 % (42.0-54.0); HEMOGLOBIN 12.9 g/dL (13.5-17.5); IMMATURE GRANULOCYTES 0.2 % (0-5); LYMPHOCYTES 13.1 % (15-50); MCH 30.8 pg (26.0-34.0); MCHC 32.4 g/dL (31.0-37.0); NEUTROPHILS 77.2 % (40-80); PLATELET COUNT 517 10x3/uL (130-400); RBC 4.19 10x6/uL (4.20-6.10); RDW 15.4 % (11.5-14.5); WBC 14.7 10x3/uL (4.8-10.8)
[2017-11-27 06:21] VITALS: BP 122/68
[2017-11-27 06:54] LABS: ALBUMIN 2.1 g/dL (3.4-5.0); ANION GAP 4.2 mmol/L (8-16); BILIRUBIN - TOTAL 0.32 mg/dL (0.2-1.3); CALCIUM 8.1 mg/dL (8.5-10.1); CARBON DIOXIDE 36.9 mmol/L (21.0-32.0); CREATININE - SERUM 1.2 mg/dL (0.6-1.3); INR 1.09 (0.85-1.17); POTASSIUM - SERUM 4.1 mmol/L (3.5-5.1); PROTEIN - SERUM 6.3 g/dL (6.4-8.2); PROTIME 13.7 SECONDS (11.6-15.0)
[2017-11-27 07:48] VITALS: BP 122/68
[2017-11-27 10:42] VITALS: BP 128/66
[2017-11-27] MEDS ORDERED: CORDARONE200 MG PO (12:49)
[2017-11-27] MEDS ORDERED: COREG 3.1253.125 MG PO (12:49)
[2017-11-27 15:45] VITALS: BP 123/68
[2017-11-27] MEDS ORDERED: LIPITOR20 MG PO (15:57)
[2017-11-27 21:20] VITALS: BP 106/60
[2017-11-28 04:40] LABS: BASOPHILS 0.2 % (0-2); EOSINOPHILS 2.1 % (0-7); HEMATOCRIT 41.4 % (42.0-54.0); HEMOGLOBIN 13.1 g/dL (13.5-17.5); IMMATURE GRANULOCYTES 0.3 % (0-5); LYMPHOCYTES 15.7 % (15-50); MCH 30.1 pg (26.0-34.0); MCHC 31.6 g/dL (31.0-37.0); MCV 95.2 fL (80.0-100.0); MEAN PLATELET VOLUME 9.8 fL (7.4-10.4); MONOCYTES 8.2 % (2-11); NEUTROPHILS 73.5 % (40-80); PLATELET COUNT 541 10x3/uL (130-400); RBC 4.35 10x6/uL (4.20-6.10); RDW 15.2 % (11.5-14.5); WBC 13.5 10x3/uL (4.8-10.8)
[2017-11-28 05:53] VITALS: BP 116/60
[2017-11-28 07:56] VITALS: BP 110/65
== END 2017-11-28 10:47 | DRG 280 ==
LOC: D.ICU 18:29 → D.M2 21:08
PROVIDERS: Family Medicine; Internal Medicine Nephrology; Internal Medicine Pulmonary Disease
PROC: 5A1945Z Respiratory Ventilation, 24-96 Consecutive Hours (ICD-10-PCS; principal; 2017-11-14)
PROC: 0BH17EZ Insertion of Endotracheal Airway into Trachea, Via Natural or Artificial Opening (ICD-10-PCS; 2017-11-14)
PROC: 05HY33Z Insertion of Infusion Device into Upper Vein, Percutaneous Approach (ICD-10-PCS; 2017-11-22)
DX: I21.4 Non-ST elevation (NSTEMI) myocardial infarction (principal); J96.01 Acute respiratory failure with hypoxia; I50.21 Acute systolic (congestive) heart failure; J96.02 Acute respiratory failure with hypercapnia; I50.23 Acute on chronic systolic (congestive) heart failure; J69.0 Pneumonitis due to inhalation of food and vomit; I46.2 Cardiac arrest due to underlying cardiac condition; N17.9 Acute kidney failure, unspecified; K81.0 Acute cholecystitis; J90 Pleural effusion, not elsewhere classified; I47.2 Ventricular tachycardia; I25.10 Atherosclerotic heart disease of native coronary artery without angina pectoris; E78.5 Hyperlipidemia, unspecified; G62.9 Polyneuropathy, unspecified; R74.0 Nonspecific elevation of levels of transaminase and lactic acid dehydrogenase [LDH]; F41.8 Other specified anxiety disorders; Z95.810 Presence of automatic (implantable) cardiac defibrillator; H91.90 Unspecified hearing loss, unspecified ear; J44.9 Chronic obstructive pulmonary disease, unspecified; D72.829 Elevated white blood cell count, unspecified; I11.0 Hypertensive heart disease with heart failure; G47.33 Obstructive sleep apnea (adult) (pediatric); D64.9 Anemia, unspecified; E87.6 Hypokalemia; I73.9 Peripheral vascular disease, unspecified

== ENCOUNTER → 2018-01-10 09:40 | Outpatient (CLI) | payer MEDICARE ==
[2017-11-20 13:57] VITALS: BMI 25.6
[~2018-01-10 09:40] MED LIST changes: +COREG 3.1253.125 MG PO; +LIPITOR20 MG PO
[2018-01-10 10:16] LABS: INR 1.64 (0.85-1.17); PROTIME 18.9 SECONDS (11.6-15.0)
== END | disposition home or self-care (01) ==
LOC: D.LAB 09:40
PROVIDERS: Thoracic Surgery (Cardiothoracic Vascular Surgery)
DX: Z51.81 Encounter for therapeutic drug level monitoring (principal); Z79.01 Long term (current) use of anticoagulants

== ENCOUNTER 2018-01-14 07:45 | Inpatient (IN) | payer MEDICARE ==
[~2018-01-14] VITALS: Ht 177.8 cm; Wt 83.0 kg
--- NOTE | ~2018-01-14 | MORECARE ---
CASE MANAGEMENT DISCHARGE SUMMARY PATIENT: BERNARDO TRUJILLO UNIT: [id number] ADM DATE: 01/14/18 AGE: 72 : 46 SEX: M ROOM/BED: D.2123 AUTHOR: JYOTI,DOC PHYSICIAN: REFERRING PHYSICIAN: NICOLE GREEN MD DATE OF SERVICE: 01/16/18 Discharge Plan Patient Name: BERNARDO TRUJILLO [facility] [facility] 1945 Planned Disposition: Nursing Facility [facility] Cert Anticipated Discharge Date: 01/16/18 Discharge Date: Expected LOS: 2 Initial Reviewer: [email or web address] Initial Review Date: 01/16/2018 Generated: 01/16/18 11:48 am DCPIA - Discharge Planning Initial Assessment Updated by [email or web address]: Rajesh Kirby on 01/16/18 10:43 am * Is the patient Alert and Oriented? Yes * How many steps to enter\exit or inside your home? NONE * PCP DR. ARIAS * [facility] * Preadmission Environment [facility] * [phone] * ADLs Partial Dependent * Partial ADLs (Assistance needed) Bathing Medication Management * Equipment Other Wheelchair * Other Equipment ALL MEDICAL EQUIPMENT PROVIDED BY FACILITY * List name and contact numbers for known caregivers / representatives who currently or will assist patient after discharge: SISTER HARRIS, * Verbal permission to speak to the caregivers and representatives has been obtained from the patient. N/A * Community resources currently utilized None * Please name any agencies selected above. NONE * Additional services required to return to the preadmission environment? No * Can the patient safely return to the preadmission environment? Yes * Has this patient been hospitalized within the prior 30 days at any hospital? No Coverage Notice Reviewer: [id number] - Rajesh Kirby Notice Issued Date-Time: 01/16/2018 10:10 Notice Type: IM Discharge Notice Notice Delivered To: Patient Relationship to Patient: Repairer Engine Production Name: Delivery Method: HAND - Hand Delivered Lauryn Days: Prior Verbal Notification: Recipient Understood Notice: Yes Recipient Signature: Yes Med Rec Note Co-signed by Attending: Coverage Notice Comment: Last DP export: 01/16/18 9:40 Patient Name: BERNARDO TRUJILLO Page 45811 at 1049 All edits/amendments must be made on the electronic document DICTATION DATE: 01/16/181047 PROCESS PLANNER: MINERVA 01/16/181047 RPT#: [id number] DC DATE: STATUS: ADM IN [facility] [address] [place] [address] END OF REPORT
--- NOTE | ~2018-01-14 | MORECARE ---
CASE MANAGEMENT DISCHARGE SUMMARY PATIENT: BERNARDO TRUJILLO UNIT: [id number] ADM DATE: 01/14/18 AGE: 72 : 46 SEX: M ROOM/BED: D.3 AUTHOR: RADHAMES MONTES PHYSICIAN: REFERRING PHYSICIAN: NICOLE GREEN MD DATE OF SERVICE: 01/16/18 Discharge Plan Patient Name: BERNARDO TRUJILLO [facility] [facility] 1945 Planned Disposition: Nursing Facility [facility] Cert Anticipated Discharge Date: 01/16/18 Discharge Date: Expected LOS: 2 Initial Reviewer: [email or web address] Initial Review Date: 01/16/2018 Generated: 01/16/18 11:39 am External Providers External Provider: [facility] Next Contact Date: 01/16/2018 Service Request Date: Service Type: Resolution: Reviewer: Comments: Coverage Notice Reviewer: [email or web address] - Rajesh Kirby Notice Issued Date-Time: 01/16/2018 10:10 Notice Type: IM Discharge Notice Notice Delivered To: Patient Relationship to Patient: Concrete Fence Builder Name: Delivery Method: HAND - Hand Delivered Lauryn Days: Prior Verbal Notification: Recipient Understood Notice: Yes Recipient Signature: Yes Med Rec Note Co-signed by Attending: Coverage Notice Comment: Patient Name: BERNARDO TRUJILLO Page 42543 at 1040 All edits/amendments must be made on the electronic document DICTATION DATE: 01/16/18 1039 TECHNOLOGY TEACHER: MINERVA 01/16/18 1039 RPT#: [id number] DC DATE: STATUS: ADM IN [facility] [address] [place] [address] END OF REPORT
--- NOTE | ~2018-01-14 | MORECARE ---
CASE MANAGEMENT DISCHARGE SUMMARY PATIENT: BERNARDO TRUJILLO UNIT: [id number] ADM DATE: 01/14/18 AGE: 72 : 46 SEX: M ROOM/BED: D.9543 AUTHOR: JYOTI,DOC PHYSICIAN: REFERRING PHYSICIAN: NICOLE GREEN MD DATE OF SERVICE: 01/16/18 Discharge Plan Patient Name: BERNARDO TRUJILLO Facility: [facility]:[place] : 1945 Planned Disposition: Nursing Facility [facility] Cert Anticipated Discharge Date: 01/16/18 Discharge Date: Expected LOS: 2 Initial Reviewer: [email or web address] Initial Review Date: 01/16/2018 Generated: 01/16/18 11:57 am Comments DCP- Discharge Planning Updated by [email or web address]: Rajesh Kirby on 01/16/18 9:[address] Patient Name: BERNARDO TRUJILLO Admission Status: Elective Accout number: [id number] Admission Date: 01-14-2018 : 1945 Admission Diagnosis: Attending: NICOLE GREEN Current LOS: 2 Anticipated DC Date: 01-16-2018 Planned Disposition: Nursing Facility [facility] Cert Primary Insurance: [employer] MEDICARE ADV PLANNED EXTERNAL PROVIDER: Discharge Planning Comments: CM RECEIVED DISCHARGE ORDER, MET WITH PT IN ROOM TO DISCUSS DISCHARGE PLANNING AND NEEDS. PT REPORTS LIVING AT [facility] AND WILL RETURN THERE AT DISCHARGE TODAY. PT REPORTS HAVING CLOTHING AND WHEELCHAIR HERE AND THEY NEED TO SEND THE VAN TO PICK HIM UP. PT DENIES DISCHARGE NEEDS AND WILL NOTIFY HIS SISTER HIMSELF OF DISCHARGE BACK "HOME". IMPORTANT MESSAGE FROM MEDICARE PROVIDED AND EXPLAINED. CM CALLED [facility], , SPOKE TO ELLIOT WHO REPORTS PT WILL RETURN TO [facility]MED[facility] CARE BED, THEY WILL ARRANGE VAN DISPOSAL MAN AND WILL NOTIFY THE BEDSIDE NURSE OF DISPOSAL MAN TIME WHEN REPORT IS CALLED. CM FAXED DISCHARGE INFORMATION TO [facility] AT [phone]. NURSE REPORT TO BE CALLED TO [facility] AT [phone]. [facility] TO ARRANGE VAN TRANSPORTATION. Insurance Loss Control Surveyor: Rajesh Kirby DCPIA - Discharge Planning Initial Assessment Updated by [email or web address]: Rajesh Kirby on 01/16/18 10:43 am * Is the patient Alert and Oriented? Yes * How many steps to enter\\exit or inside your home? NONE * PCP DR. ARIAS * [facility] * Preadmission Environment [facility] * Facility Name [facility] [phone] * ADLs Partial Dependent * Partial ADLs (Assistance needed) Bathing Medication Management * Equipment Other Wheelchair * Other Equipment ALL MEDICAL EQUIPMENT PROVIDED BY FACILITY * List name and contact numbers for known caregivers / representatives who currently or will assist patient after discharge: GER JEFFERSON, , * Verbal permission to speak to the caregivers and representatives has been obtained from the patient. N/A * Community resources currently utilized None * Please name any agencies selected above. NONE * Additional services required to return to the preadmission environment? No * Can the patient safely return to the preadmission environment? Yes * Has this patient been hospitalized within the prior 30 days at any hospital? No Coverage Notice Reviewer: [email or web address] Rashard Kirby Notice Issued Date-Time: 01/16/2018 10:10 Notice Type: IM Discharge Notice Notice Delivered To: Patient Relationship to Patient: Corrections Officer Name: Delivery Method: HAND - Hand Delivered Lauryn Days: Prior Verbal Notification: Recipient Understood Notice: Yes Recipient Signature: Yes Med Rec Note Co-signed by Attending: Coverage Notice Comment: Last DP export: 01/16/18 9:48 Patient Name: BERNARDO TRUJILLO Page 80053 at 1057 All edits/amendments must be made on the electronic document DICTATION DATE: 01/16/181056 MOTORCOACH OPERATOR: MINERVA 01/16/18 1057 RPT#: [id number] DC DATE: STATUS: ADM IN [facility] [address] [place] [address] END OF REPORT
--- NOTE | ~2018-01-14 | OP ---
PATIENT NAME: BERNARDO TRUJILLO MEDICAL RECORD: [id number] :46 LOCATION:. D.2123 ADMISSION DATE:01/14/18 SURGEON: CAMDEN SHI MD DATE OF OPERATION: 01/15/2018 SURGEON: Camden Shi MD ANESTHESIA: General; Brian Jensen MD OPERATIONS PERFORMED: 1. Pulse generator exchange. 2. Pulse generator pocket revision. PREOPERATIVE DIAGNOSIS: Cardiomyopathy. POSTOPERATIVE DIAGNOSIS: Cardiomyopathy. INDICATION FOR OPERATION: Pulse generator end of life. FINDINGS AT OPERATION: The explanted pulse generator, Medtronic, model #A219GEP, serial #[id number]. Newly implanted pulse generator, Medtronic, model #OUNI5X4, serial #[id number]. Good chronic leads. Right atrial lead: P wave 2.0, impedance 475, threshold 0.75 volts. Right ventricular lead: R wave 14.9, impedance 418, HVB impedance 46, HVX impedance 58, threshold 1.25. Left ventricular lead: Impedance 646 ohms, threshold 0.875 volts. ESTIMATED BLOOD LOSS: Less than 3 cc. DESCRIPTION OF PROCEDURE: After informed consent, adequate preoperative medication, and evaluation, the patient was brought to the operating room and placed on the table in supine position. After induction of general endotracheal anesthesia and application of appropriate monitoring devices, the left neck and chest were prepped and draped in a sterile field utilizing Betadine scrub, alcohol, and Betadine solution. Betadine-impregnated drape was also used. Lidocaine 1% was infiltrated over the device as well as in the pocket. An incision was made and dissection was carried down to the pocket. The pocket was opened and the device was explanted. The leads were mobilized proximally. The pacemaker pocket was freya and had pressure points on the skin; therefore, the pocket was revised by incising the capsule medially and inferiorly as well as superiorly. The device was removed from the leads. Hemostasis was assured. The leads were then connected to the new pulse generator after cleaning. The pulse generator was placed in the pocket. Pacemaker was fired, captured, and sensed appropriately. The AICD device was also checked, which was appropriate. The wound was irrigated. Instrument counts and sponge counts were correct times 2. Wound was closed in layers utilizing 3-0 Vicryl on the pocket, 3-0 Vicryl on the superficial subcutaneous tissue, and 5-0 subcuticular Monocryl on the skin. Sterile dressings were applied. The patient tolerated the procedure well and transferred to the postanesthesia recovery in satisfactory condition. OPERATIVE REPORT [id number] TRUJILLOBERNARDO Michelle TRANSINT:[id number] Voice Confirmation ID: [id number] DOCUMENT ID: [id number] CAMDEN SHI MD at 0946 CC: [id number] DICTATION DATE: 01/15/18 1231 GUIDANCE DIRECTOR: 01/15/18 1333 DIS IN 01/16/18 [facility] [address] [place] [address]
--- NOTE | ~2018-01-14 | HP ---
PATIENT: BERNARDO TRUJILLO MEDICAL RECORD: [id number] ACCOUNT: [id number] LOCATION:[address] : 46 ADMISSION DATE: 01/14/18 PCP: NICOLE GREEN MD HISTORY AND PHYSICAL EXAMINATION BERNARDO Staley (72yo, M) ID# [id number]. Date/Time01/09/2018 01:[id number] 1945Service Dept.NPP_[facility] ClinicProviderDANIBOSSMAN GREEN MDInsuranceMed Primary: [employer] (MEDICARE REPLACEMENT/ADVANTAGE - HMO) Insurance # : [id number] Employer Name : RETIRED Prescription: CMX - Member is eligible. Chief Complaint Followup: Maintenance procedure for cardiac pacemaker system eval for ICD gen change s/p redo AVR/CABG 08/30/2001 Vitals BP:108/54 sitting L arm 01/09/2018 01:44 pmBP Cuff Size:adult 01/09/2018 01:44 pmHR:76,reg 01/09/2018 01:45 pmHt:5 ft 10 in 01/09/2018 01:38 pmWt:182 lbs 01/09/2018 01:45 pmBMI:26.1 01/09/2018 01:45 pmAllergies Reviewed Allergies CODEINESULFA (SULFONAMIDE ANTIBIOTICS)Medications Reviewed Medications acetaminophen 500 mg tablet Take 2 tablet(s) every 4 hours by oral route.01/09/18 enteredKathy WilsonALPRAZolam 1 mg tablet TK 1 T PO QID PRN10/06/17 filledsurescriptsamiodarone 200 mg tablet TK 1 T PO D010/03/17 filledCaremarkaspirin 325 mg tablet Take 1 tablet(s) every day by oral route.01/03/18 enteredKathy Wilsonatorvastatin 20 mg tablet Take 1 tablet(s) every day by oral route.01/03/18 enteredKathy KdsfmfSvbjclrp78/24/18 enteredKathy Wilsonbumetanide 1 mg tablet TK 3 TS PO D003/20/17 filledsurescriptscarvedilol 3.125 mg qocwta85/06/12 filledCaremarkChloraseptic Max Sore Zjomkb02/24/18 enteredKathy WilsonDexilant 60 mg capsule, delayed release TK ONE C PO ONCE D010/03/17 filledCaremarkescitalopram 20 mg tablet Take 1 tablet(s) every day by oral route.01/09/18 [facility] WilsonhydrALAZINE 10 mg vngooh22/05/13 filledCaremarkHYDROcodone 10 mg-acetaminophen 325 mg tablet Take 1 tablet(s) every 4 hours by oral route.01/03/18 [facility] Hospitalipratropium-albuterol 0.5 mg-3 mg(2.5 mg base)/3 mL nebulization soln Inhale 3 mL 4 times a day by nebulization route.01/03/18 entered[facility] LqgjsfEgxixlhivifgx88/18/18 entered[facility] RjqkvuCwtehqt15/18/18 enteredP[facility] HospitalmetroNIDAZOLE 500 mg bepthh52/04/12 zoshlmBibxzzoyUjgypdr86/18/18 entered[facility] Hospitalnitroglycerin 0.4 mg sublingual /24/18 filledCaremarkpantoprazole 40 mg tablet,delayed release Take 1 tablet(s) every day by oral route.01/03/18 entered[facility] WilsonPlavix 75 mg tablet Take 1 tablet(s) every day by oral route.01/09/18 [facility] 3350 17 gram oral powder packet Take 1 packet(s) every day by oral route.01/09/18 entered[facility] Wilsonramipril 5 mg capsule Take 1 capsule(s) every day by oral route.01/09/18 entered[facility] WilsonSenna 01/09/18 enteredP[facility] Hospitalspironolactone 25 mg tablet TK 1 T PO QD10/03/17 filledCaremarkwarfarin 5 mg tablet TK 1 T PO THREE TIMES WEEKLY AND TK 1/2 T PO OTHER DAYS10/06/17 HISTORY AND PHYSICAL [id number] BERNARDO TRUJILLO filledCaremarkProblems Reviewed Problems Coronary arteriosclerosis - Onset: 01/07/2018 Heart valve disorder - Onset: 01/07/2018 Heart disease - Onset: 01/07/2018 Automatic implantable cardiac defibrillator in situ - Onset: 01/03/2018 Maintenance procedure for cardiac pacemaker system - Onset: 01/03/2018 Anticoagulant therapy - Onset: 01/07/2018 Family History Reviewed Family History Father- Heart disease ( age: 69) - CHFMother- Myocardial infarction ( age: 86)Social History Reviewed Social History Cardiology Family history of heart disease?: Y Smoking Status: Unknown if ever smoked (Notes: currently nonsmoker) High Cholesterol: N High blood pressure: Y Exercise level: None Overweight: N Obese: N Diabetes: N Marital status: Single Surgical History Reviewed Surgical History Aortic Valve Surgery CABG AICD - 04/13/2010 - Medtronic Consulta PAN SHAKER-D [id number] Past Medical History Reviewed Past Medical History Angioplasty (balloon): Y Depression: Y Heart Disease: Y Heart Rhythm Disorder: Y Heart stents: Y Hypertension: Y Pain in legs when walking: Y Peripheral Vascular Disease (PVD): Y Shortness of Breath: Y Swelling of Ankles, Feet or Hands: Y Valve disease: Y Notes: dilated cardiomyopathy, CHF, CAD, discolored feet and legs, fatigue, heart stents, hip pain, leg cramps, leg pain, leg stents, leg weakness, mental illness, sore muscles and joints, valvular heart disease Documents for Discussion N/A Screening None recorded. HPI Pacemaker Check Reported by patient. Pacemaker Check battery life near EOL; here for evaluation of ICD generator change HISTORY AND PHYSICAL [id number] BERNARDO TRUJILLO ICD end-of-life Recent cardiopulmonary resuscitation and stent, on 3 drug anticoagulation History of mechanical AVR [address] Horner, on Coumadin ROS ROS as noted in the HPI Physical Exam Patient is a 72-year-old male. Constitutional: General Appearance well nourished and developed and healthy-appearing. Level of Distress NAD. Ambulation limited ambulation and in wheelchair. Cardiovascular: Apical Impulse displaced. Heart Auscultation RRR and no murmurs. Edema no edema. Lungs: Repiratory Effort no dyspnea. Percussion no dullness or flatness. Auscultation no wheezing, rhonchi, or rales / crackles and breathing sounds normal and good air movement. Abdomen: Bowl Sounds normal. Inspection and Palpation soft, non-distended, and no tenderness. Ears, Nose, Throat: Hearing grossly normal hearing. Oropharynx: moist mucous membranes. Musculoskeletal System: Digits and Nails normal nails and no cyanosis. Joints, Bones, and Muscles limited ROM and abnormal strength. Neurologic: Cranial Nerves grossly intact. Sensation grossly intact. Lymph Nodes: Lymph Nodes no cervical LAD or supraclavicular LAD. Eyes: Lids and Conjunctivae no discharge or pallor and non-injected. Pupils PERRLA. Cornea grossly intact. EOM EOMI. Lens clear. Sclerae non-icteric. Neck: Neck no masses, enlarged lymph nodes, or carotid bruits and supple and trachea midline. Thyroid no enlargement or nodules and non-tender. Skin: Inspection and Palpation no rash, lesions, ulcers, or jaundice; ICD anterior chest and healed midsternal scar. Assessment / Plan 1. Cardiomyopathy I42.9: Cardiomyopathy, unspecified Patient Instructions discontinue aspirin, continue Plavix Check INR tomorrow Discussion Notes mechanical AVR in the aortic position, should be able to discontinue Coumadin without bridging, especially as he is on Plavix after recent stent of the ostial stenosis of the vein graft. We will review INR and make a plan for ICD replacement HISTORY AND PHYSICAL [id number] BERNARDO TRUJILLO EDWARD MD at 0946 CC: [id number] DICTATION DATE: 01/09/18 1340 LAMINATOR PRINTED CIRCUIT BOARDS: DM 01/14/18 1449 DIS IN 01/16/18 [facility] [address] [place] [address]
[2018-01-14 13:58] LABS: HEMATOCRIT 41.9 % (42.0-54.0); HEMOGLOBIN 13.7 g/dL (13.5-17.5); MCH 30.8 pg (26.0-34.0); MCHC 32.7 g/dL (31.0-37.0); MCV 94.2 fL (80.0-100.0); MEAN PLATELET VOLUME 9.9 fL (7.4-10.4); RBC 4.45 10x6/uL (4.20-6.10); RDW 15.3 % (11.5-14.5); WBC 17.2 10x3/uL (4.8-10.8)
[2018-01-14 14:01] LABS: APPEARANCE CLEAR (CLEAR); BILIRUBIN NEGATIVE (NEGATIVE); COLOR YELLOW (YELLOW); GLUCOSE NEGATIVE (NEGATIVE); KETONE NEGATIVE (NEGATIVE); NITRITE NEGATIVE (NEGATIVE); PROTEIN NEGATIVE (NEGATIVE); UROBILINOGEN NORMAL (NORMAL)
[2018-01-14 14:21] LABS: ANION GAP 13.5 mmol/L (8-16); CARBON DIOXIDE 31.8 mmol/L (21.0-32.0); CREATININE - SERUM 1.2 mg/dL (0.6-1.3); POTASSIUM - SERUM 3.3 mmol/L (3.5-5.1)
[2018-01-14 14:25] LABS: APTT 31.4 SECONDS (22.8-39.4); INR 1.04 (0.85-1.17); PROTIME 13.2 SECONDS (11.6-15.0)
[2018-01-14 15:49] VITALS: BP 120/56
[2018-01-14 17:58] VITALS: BP 120/56; Ht 177.8 cm; Wt 83.0 kg
[2018-01-14 20:27] VITALS: BP 111/58
[2018-01-15] VITALS (8 sets, daily range): BP systolic 115–130; BP diastolic 56–65
[2018-01-15 06:20] LABS: INR 1.02 (0.85-1.17)
[2018-01-15 06:23] LABS: APTT 33.8 SECONDS (22.8-39.4)
[2018-01-15 06:24] LABS: ANION GAP 8.1 mmol/L (8-16); BILIRUBIN - TOTAL 0.33 mg/dL (0.2-1.3); CALCIUM 8.5 mg/dL (8.5-10.1); CARBON DIOXIDE 35.5 mmol/L (21.0-32.0); CREATININE - SERUM 1.3 mg/dL (0.6-1.3); POTASSIUM - SERUM 3.6 mmol/L (3.5-5.1); PROTEIN - SERUM 6.6 g/dL (6.4-8.2)
[2018-01-15 06:25] LABS: HEMATOCRIT 39.4 % (42.0-54.0); HEMOGLOBIN 12.7 g/dL (13.5-17.5); MCH 30.3 pg (26.0-34.0); MCHC 32.2 g/dL (31.0-37.0); MEAN PLATELET VOLUME 9.8 fL (7.4-10.4); PLATELET COUNT 406 10x3/uL (130-400); RBC 4.19 10x6/uL (4.20-6.10); RDW 15.3 % (11.5-14.5)
[2018-01-15 07:29] LABS: ANISOCYTOSIS OCC; EOSINOPHILS 2 % (0-7); LYMPHOCYTES 17 % (15-50); MONOCYTES 15 % (2-11); NEUTROPHILS 66 % (40-80); PLATELET ESTIMATE INCREASED
[2018-01-15 07:31] LABS: CRENATED CELLS OCC; POIKILOCYTOSIS OCC; SCHISTOCYTES OCC
[2018-01-16 00:49] VITALS: BP 126/63
[2018-01-16 06:23] VITALS: BP 116/59
[2018-01-16 08:45] VITALS: BP 144/70
[2018-01-16 13:19] VITALS: BP 133/62
== END 2018-01-16 16:02 | DRG 245 ==
LOC: D.OPS 07:45 → D.M2 13:09 → EDSTATUS 01-15 07:45 → D.OPS 01-15 07:45 → D.M2 01-16 16:02
PROVIDERS: Internal Medicine Cardiovascular Disease; Thoracic Surgery (Cardiothoracic Vascular Surgery)
PROC: 0JPT0PZ Removal of Cardiac Rhythm Related Device from Trunk Subcutaneous Tissue and Fascia, Open Approach (ICD-10-PCS; 2018-01-15)
PROC: 0JH608Z Insertion of Defibrillator Generator into Chest Subcutaneous Tissue and Fascia, Open Approach (ICD-10-PCS; principal; 2018-01-15 09:00)
DX: I25.5 Ischemic cardiomyopathy (principal); Z45.02 Encounter for adjustment and management of automatic implantable cardiac defibrillator; I25.10 Atherosclerotic heart disease of native coronary artery without angina pectoris; E03.9 Hypothyroidism, unspecified; Z79.01 Long term (current) use of anticoagulants; D72.829 Elevated white blood cell count, unspecified; I50.9 Heart failure, unspecified

== ENCOUNTER 2019-10-18 18:03 | Inpatient (IN) | payer MEDICARE, MEDICAID ==
[~2019-10-18] VITALS: Ht 177.8 cm; Wt 114.6 kg
--- NOTE | 2019-10-18 18:45 | NUR ---
PT PLACED ON NRB BY RT.
[2019-10-18 19:13] LABS: APTT 50.3 SECONDS (22.8-39.4); INR 3.25 (0.85-1.17); PROTIME 32.5 SECONDS (11.6-15.0)
[2019-10-18 19:15] LABS: CALC OSMOLALITY 299 mosm/kg (275-300); CALCIUM 9.2 mg/dL (8.5-10.1); CARBON DIOXIDE 25.4 mmol/L (21.0-32.0); CHLORIDE - SERUM 99 mmol/L (98-107); POTASSIUM - SERUM 4.3 mmol/L (3.5-5.1); SODIUM 134 mmol/L (136-145); UREA NITROGEN 88 mg/dL (7-18); eGFR NON AFRICAN AMERICAN 22 mL/min (90-120)
[2019-10-18 19:16] LABS: HEMATOCRIT 37.5 % (42.0-54.0); HEMOGLOBIN 12.3 g/dL (13.5-17.5); MCH 30.8 pg (26.0-34.0); MCHC 32.8 g/dL (31.0-37.0); MCV 93.8 fL (80.0-100.0); MEAN PLATELET VOLUME 9.5 fL (7.4-10.4); PLATELET COUNT 509 10x3/uL (130-400); WBC 29.6 10x3/uL (4.8-10.8)
[2019-10-18 19:17] LABS: GLUCOSE 196 mg/dL (74-106)
[2019-10-18 19:38] LABS: ALBUMIN 2.6 g/dL (3.4-5.0); ALKALINE PHOSPHATASE 65 U/L (30-120); ALT (SGPT) 49 U/L (10-68); BILIRUBIN - TOTAL 0.33 mg/dL (0.2-1.3); CKMB 13.7 U/L (0.0-3.6); CREATINE KINASE 1214 UL (21-232); PRO BNP 7872 pg/mL (0-125); PROTEIN - SERUM 7.8 g/dL (6.4-8.2)
[2019-10-18 19:42] LABS: LYMPHOCYTES 6 % (15-50); MONOCYTES 7 % (2-11); NEUTROPHILS 83 % (40-80)
[2019-10-18 19:43] LABS: PLATELET ESTIMATE INCREASED
[2019-10-18 19:44] LABS: TROPONIN-I 0.396 ng/mL (0.000-0.060)
[2019-10-18 21:46] VITALS: BP 106/49
[2019-10-18] MEDS ORDERED: AZITHROMYCIN500 MG PO (23:52)
[2019-10-18] MEDS ORDERED: COMBIVENT RESPIM4 GM INH (23:53)
[2019-10-18] MEDS ORDERED: COUMADIN4 MG PO (23:54)
[2019-10-18] MEDS ORDERED: HYDROCHLOROTHIA25 MG PO (23:55)
[2019-10-18] MEDS ORDERED: MUCINEX DM ER1 EAC1 PO (23:55)
[2019-10-18] MEDS ORDERED: IPRAT-ALBUT 0.5-3 ML (23:56)
[2019-10-18] MEDS ORDERED: IPRAT-ALBUT 0.5-3 ML UPD (23:57)
[2019-10-18] MEDS ORDERED: SYNTHROID50 MCG PO (23:58)
[2019-10-18] MEDS ORDERED: MAG-OX 400 MG400 MG PO (23:59)
[2019-10-19] VITALS (9 sets, daily range): BP systolic 99–126; BP diastolic 49–72; BMI 34.5
[2019-10-19] MEDS ORDERED: PULMICORT0.5 MG/21 INH
[2019-10-19] MEDS ORDERED: TRAZODONE HCL150 MG (00:01)
[2019-10-19] MEDS ORDERED: ASCORBIC ACID500 MG PO (00:03)
[2019-10-19] MEDS ORDERED: ZINC-220220 MG PO (00:05)
[2019-10-19] MEDS ORDERED: ROCEPHIN 1 GM/D51 G1 IM (01:17)
[2019-10-19 06:46] LABS: ALBUMIN 2.4 g/dL (3.4-5.0); ANION GAP 15.6 mmol/L (8-16); BILIRUBIN - TOTAL 0.32 mg/dL (0.2-1.3); CALCIUM 8.8 mg/dL (8.5-10.1); CARBON DIOXIDE 26.1 mmol/L (21.0-32.0); CREATININE - SERUM 3.2 mg/dL (0.6-1.3); MAGNESIUM - SERUM 3.1 mg/dL (1.8-2.4); POTASSIUM - SERUM 4.7 mmol/L (3.5-5.1); PROTEIN - SERUM 7.4 g/dL (6.4-8.2)
--- NOTE | 2019-10-19 07:00 | NUR ---
RECEIVED REPORT. ASSUMED CARE OF PATIENT. PATIENT REMAINS IN ISOLATION FOR POSITIVE COVID 19. PATIENT ON TELEMETRY WITH RATE OF 75 AND PACED.
[2019-10-19 07:11] LABS: INR 3.85 (0.85-1.17); PROTIME 37.1 SECONDS (11.6-15.0)
[2019-10-19 07:26] LABS: BASOPHILS 0.2 % (0-2); EOSINOPHILS 0 % (0-7); HEMATOCRIT 37.1 % (42.0-54.0); HEMOGLOBIN 11.8 g/dL (13.5-17.5); IMMATURE GRANULOCYTES 0.6 % (0-5); MCH 30.1 pg (26.0-34.0); MCHC 31.8 g/dL (31.0-37.0); MCV 94.6 fL (80.0-100.0); MEAN PLATELET VOLUME 9.9 fL (7.4-10.4); MONOCYTES 3.5 % (2-11); NEUTROPHILS 91.7 % (40-80); PLATELET COUNT 572 10x3/uL (130-400); RBC 3.92 10x6/uL (4.20-6.10); RDW 14.3 % (11.5-14.5); WBC 30.3 10x3/uL (4.8-10.8)
--- NOTE | 2019-10-19 09:15 | NUR ---
PATIENT NOTED TO DESAT VERY QUICKLY TO 80-83% WHEN HE REMOVES HIS NON-REBREATHER MASK. EDUCATION PROVIDED TO PATIENT. PATIENT VERBALIZED UNDERSTANDING OF NOT TAKING HIS MASK OFF.
--- NOTE | 2019-10-19 11:15 | NUR ---
RESTING IN BED, SITTING UPRIGHT, WITH EYES CLOSED. NON REBREATHER MASK PATENT. NO DISTRESS. CALL LIGHT WITHIN REACH.
--- NOTE | 2019-10-19 15:55 | NUR ---
ICU TO CALL WHEN ABLE TO RECEIVE REPORT ON PATIENT. PATIENT TO BE TRANSFERRED TO ROOM 2313.
--- NOTE | 2019-10-19 17:11 | NUR ---
CALLED MED 2 NURSE BACK TO GET REPORT AFTER SPEAKING WITH DR BILLINGSLEY.
--- NOTE | 2019-10-19 17:17 | NUR ---
WAITING FOR FURTHER INSTRUCTIONS FROM ICU NURSE IN REGARDS TO MOVING PATIENT.
--- NOTE | 2019-10-19 18:19 | NUR ---
PT RECEIVED TO ROOM 2313. ON NRB AT 100%. HOOKED UP TO MONITORS. O2 SAT 93%. ALERT AND ORIENTED. INSTRUCTED ON COVID PRECAUTIONS IN ICU. PT HAS NO QUESTIONS AT THIS TIME. WILL CONTINUE TO MONITOR.
[2019-10-19 18:37] LABS: FERRITIN 1732 ng/mL (3-244); LDH 718 U/L (85-227)
--- NOTE | 2019-10-19 20:45 | NUR ---
RT AT BEDSIDE- CHART CHECK COMPLETED - ORDERS FOR BIPAP AND REPEAT GAS DURING DAY SHIFT, PT ON NRB - RT PLACED AN BIPAP, REPEAT ABGS WILL BE PERFORMED LATER TO ASSESS BIPAP THERAPY
--- NOTE | 2019-10-19 20:50 | NUR ---
[facility] LINE PAGED TO ADDRESS NPO STATUS AND PO MEDICATIONS.
--- NOTE | 2019-10-19 21:07 | NUR ---
EMBER PEREIRAN ON UNIT ROUNDING ON PATIENT
--- NOTE | 2019-10-19 21:10 | NUR ---
SPOKE WITH DR BILLINGSLEY REGARDING PO DEXAMETHASONE - ORDER CONVERTED TO IV
--- NOTE | 2019-10-19 21:23 | NUR ---
LONG-TERM CALLED FOR UPDATE ALL QUESTIONS ANSWERED
--- NOTE | 2019-10-19 21:30 | NUR ---
CARDIOLOGY PAGED TO ADDRESS AMIO PO MEDICATION
--- NOTE | 2019-10-19 23:16 | NUR ---
CARDIOLOGY DID NOT RETURN PAGE X 2 - EMBER TAYLOR SAYS BRANDON TO ADDRESS IN THE AM. PT NSR ON MONITOR VSS WILL CONTINUE TO CLOSELY MONITOR, REASSESSMENT COMPLETED SEE FLOWSHEET
[2019-10-20] VITALS (24 sets, daily range): BP systolic 95–131; BP diastolic 51–100; Ht 177.8 cm; Wt 114.6 kg
[2019-10-20 02:58] LABS: BASOPHILS 0.1 % (0-2); EOSINOPHILS 0 % (0-7); HEMATOCRIT 41.6 % (42.0-54.0); HEMOGLOBIN 13.2 g/dL (13.5-17.5); IMMATURE GRANULOCYTES 0.7 % (0-5); LYMPHOCYTES 2.9 % (15-50); MCH 30.3 pg (26.0-34.0); MCHC 31.7 g/dL (31.0-37.0); MCV 95.6 fL (80.0-100.0); MONOCYTES 7.3 % (2-11); PLATELET COUNT 669 10x3/uL (130-400); RBC 4.35 10x6/uL (4.20-6.10); RDW 14.3 % (11.5-14.5)
[2019-10-20 03:12] LABS: PROTIME 43.2 SECONDS (11.6-15.0)
[2019-10-20 03:13] LABS: INR 4.7 (0.85-1.17)
[2019-10-20 03:22] LABS: CALCIUM 8.9 mg/dL (8.5-10.1); CHLORIDE - SERUM 103 mmol/L (98-107); CKMB 43.3 U/L (0.0-3.6); CREATININE - SERUM 2.7 mg/dL (0.6-1.3); GLUCOSE 133 mg/dL (74-106); POTASSIUM - SERUM 4.1 mmol/L (3.5-5.1); SODIUM 143 mmol/L (136-145); eGFR NON AFRICAN AMERICAN 25 mL/min (90-120)
--- NOTE | 2019-10-20 03:40 | NUR ---
REASSESSMENT COMPLETED SEE FLOWSHEET
[2019-10-20 03:41] LABS: CALC OSMOLALITY 318 mosm/kg (275-300); CARBON DIOXIDE 32.7 mmol/L (21.0-32.0); CREATINE KINASE 5121 UL (21-232); UREA NITROGEN 102 mg/dL (7-18)
--- NOTE | 2019-10-20 06:03 | NUR ---
PT RESTING COMFORTABLY, BIPAP @ 40% - VSS CPOC
--- NOTE | 2019-10-20 06:24 | NUR ---
DR SHOEMAKER ON UNIT ROUNDING ON PATIENT, CRITICAL LAB VALUE REPORTED
--- NOTE | 2019-10-20 11:21 | NUR ---
0700 REPORT RECEIVED FROM JOB PLACEMENT SPECIALIST DRILLING RIG OPERATOR COMPLETE USING PROPER PPE
--- NOTE | 2019-10-20 11:23 | NUR ---
[address] ON NON-REBREATHER O2 SAT DROPED DOWN QUICKLY WHEN OFF THE BPAP RESUMED BPAP AT 40% ENCOURAGED PT TO CLOSE HIS EYES AND REST INSTEAD OF PULLING AT HIS BPAP.
[2019-10-20 11:32] LABS: BILIRUBIN NEGATIVE (NEGATIVE); GLUCOSE NEGATIVE (NEGATIVE); KETONE NEGATIVE (NEGATIVE); NITRITE NEGATIVE (NEGATIVE); UROBILINOGEN NORMAL (NORMAL)
[2019-10-20 11:33] LABS: BACTERIA FEW /hpf (NEGATIVE); RED CELLS - URINE 0-5 /hpf (0-5); WHITE CELLS - URINE 0-5 /hpf (NEGATIVE)
--- NOTE | 2019-10-20 13:00 | NUR ---
1500 RESTING QUIETLY WITH EYES CLOSED
--- NOTE | 2019-10-20 13:47 | CN ---
PATIENT NAME:BERNARDO TRUJILLO MEDICAL RECORD: [id number] : 47 LOCATION:FAZAL.2313 ADMIT DATE: 10/18/19 ACCOUNT: [id number] CONSULTING PHYSICIAN: SHIRLEY LI MD REFERRING PHYSICIAN: CHRISTIANE CERVANTES MD DATE OF CONSULTATION: 10/19/2019 HISTORY OF PRESENT ILLNESS: This is a 74-year-old gentleman with extensive cardiovascular history status post coronary artery bypass grafting in two separate settings. He has a history of aortic valve replacement as well as ICD placement, was admitted from long term with Covid positive. Currently, he has some shortness of breath. No specific cardiovascular complaints, reports no syncope, near syncope, shortness of breath appears to be more from pulmonary vascular issue. We are asked to see him concerning his cardiovascular status. PAST MEDICAL HISTORY: Includes, 1. History of hypertension. 2. Hyperlipidemia. 3. Coronary artery disease, status post coronary artery bypass grafting. 4. Ischemic cardiomyopathy, EF 20% to 25%. Aortic valve disease status post aortic valve replacement. ALLERGIES: SULFA AND CODEINE. MEDICATIONS: Upon transfer from long term include Combivent 2 puffs q.i.d., DuoNeb q.6 hours p.r.n., Plavix 75 every day, warfarin per scale, Aldactone 25 every day, ramipril 5 b.i.d., carvedilol 3.125 every day, atorvastatin 20 every day, aspirin 81 every day, trazodone 50 bedtime, HCTZ 25 every day, and Synthroid 50 mcg every day. SOCIAL HISTORY: Nonsmoker and nondrinker, currently resides in a long term. REVIEW OF SYSTEMS: The patient reports easy bruising but reports no swollen glands. The patient reports no fever, no night sweats, no significant weight gain, no significant weight loss. No significant exercise tolerance. The patient reports no dry eyes, no irritation, no vision change. Patient reports no difficulty hearing and no ear pain. Patient reports no frequent nose bleeds or nose and sinus problems. Patient reports on arm pain on exertion. No shortness of breath while lying down. No history of heart murmur. Patient reports no cough, no wheezing or coughing up blood. Patient reports no abdominal pain, no vomiting. Normal appetite. No diarrhea and not vomiting blood. No nausea and no constipation. Patient reports no incontinence. No difficulty urinating. No hematuria. No increased frequency. Patient reports no muscle aches. No weakness, no arthralgias, no back pain. No swelling of the extremities. Patient reports no abnormal mole, no jaundice, no rashes. Reports no loss of consciousness. No weakness and no numbness. No seizures, dizziness, or headaches. The patient reports no depression, no sleep disturbance, feeling safe in a relationship and no alcohol abuse. Patient reports on fatigue. Reports no runny nose or sinus pressure. No itching, no hives, and no frequent sneezing. PHYSICAL EXAMINATION: GENERAL: No acute distress, appears stated age. VITAL SIGNS: Blood pressure 125/56, pulse 77 and regular. HEENT: Normocephalic, atraumatic. CONSULT REPORT [id number] BERNARDO TRUJILLO NECK: No JVD or bruit. HEART: Regular. S3 gallop is noted. LUNGS: Diminished breath sounds bilaterally. ABDOMEN: Soft, nontender. EXTREMITIES: Pulses 2+. No edema. IMPRESSION: He appears to be stable from a cardiovascular standpoint, hard to interpret his troponin in lieu of his increased creatinine, although certainly should be demand ischemia from his underlying Covid. No evidence of volume overload at this point in time clinically. I agree with current management. TRANSINT:[id number] Voice Confirmation ID: [id number] DOCUMENT ID: [id number] SHIRLEY LI MD at 1347 CC: [id number] DICTATION DATE: 10/19/191126 HOSPITAL DIRECTOR: 10/19/192116 ADM IN [place] [address] [place] [address]
--- NOTE | 2019-10-20 14:39 | NUR ---
1100 RESTING QUIETLY WITH EYES CLOSED
--- NOTE | 2019-10-20 14:39 | NUR ---
1300 DR TRINH ROUNDBHARTI ON PATIENT PLACED ON 15L HIGH FLOW WELL , 15L ON NON -REBREATHER THIS COMBINATION IS WORKIHG WELL WITH THE PATIENT M02 SAT 95%
[2019-10-21] VITALS (16 sets, daily range): BP systolic 91–135; BP diastolic 42–93
[2019-10-21 06:41] LABS: ANION GAP 12.6 mmol/L (8-16); CALCIUM 9.1 mg/dL (8.5-10.1); CARBON DIOXIDE 27.9 mmol/L (21.0-32.0); CREATININE - SERUM 2.1 mg/dL (0.6-1.3); POTASSIUM - SERUM 4.5 mmol/L (3.5-5.1)
[2019-10-21 06:51] LABS: D-DIMER-QUANTITATIVE 0.69 ug/mLFEU (0.20-0.54); HEMATOCRIT 38.5 % (42.0-54.0); HEMOGLOBIN 12.2 g/dL (13.5-17.5); MCH 30.3 pg (26.0-34.0); MCHC 31.7 g/dL (31.0-37.0); MCV 95.8 fL (80.0-100.0); MEAN PLATELET VOLUME 9.7 fL (7.4-10.4); PLATELET COUNT 680 10x3/uL (130-400); RBC 4.02 10x6/uL (4.20-6.10); RDW 14.4 % (11.5-14.5); WBC 26.4 10x3/uL (4.8-10.8)
[2019-10-21 06:52] LABS: PROTIME 60.7 SECONDS (11.6-15.0)
[2019-10-21 06:53] LABS: INR 7.31 (0.85-1.17)
[2019-10-21 08:30] LABS: LYMPHOCYTES 2 % (15-50); MONOCYTES 1 % (2-11); NEUTROPHILS 97 % (40-80); PLATELET ESTIMATE INCREASED
[2019-10-21 08:31] LABS: PLATELET MORPHOLOGY NORMAL PLT MORPH
--- NOTE | 2019-10-21 13:10 | NUR ---
0700 REPORT RECEIVED FROM TEST ENGINEERING INTERN RN ASSESMENT COMPLETE REMAINS ON BPAP AT 80% O2
--- NOTE | 2019-10-21 13:11 | NUR ---
0900 DESATS VERY QUICKLY WHEN PULLS OFF BPAP ENCOURAGED TO KEEP BPAP ON AT ALL TIMES
--- NOTE | 2019-10-21 13:12 | NUR ---
1100 RT PRESENT PROVIDING NEB TREATMENTS DR MASON ASSESSING PT
--- NOTE | 2019-10-21 13:13 | NUR ---
1300 UNABLE TO EAT R/T SOB
[2019-10-21 14:24] LABS: CREATININE - URINE 64.5 mg/dL (30-125); PRO/CRE RATIO URINE 1.7 mg/g; PROTEIN - URINE 107.1 mg/dL (0.0-11.9)
--- NOTE | 2019-10-21 14:31 | NUR ---
1330 R VY ROUNDING TOOK OFF BPAP AND PLACED ON 100% NRB PLUS HFNC AT 15 L
--- NOTE | 2019-10-21 14:37 | NUR ---
1415 PLACED BACK ON BPAP AT 80%
--- NOTE | 2019-10-21 15:16 | NUR ---
1500 NOTIFIED TIANNA IN BLOOD BANK OF NEW ORDER FOR UNIT [facility] STAFF STATED SHE WILL SEND OVER PAPERWORK FOR DR MCCLELLAN TO FILL OUT AND THAT SHE WILL GET THE PROCESS STARTED
--- NOTE | 2019-10-21 19:46 | NUR ---
1700 KEEPS PULLING OFF MASK ENCOURAGED PT TO KEEP HANDS OFF HIS BPAP MASK
[2019-10-22] VITALS (23 sets, daily range): BP systolic 99–142; BP diastolic 50–88
--- NOTE | 2019-10-22 03:25 | NUR ---
REASSESSMENT COMPLETE, NO CHANGES NOTED,
[2019-10-22 06:34] LABS: ANION GAP 12.1 mmol/L (8-16); CALCIUM 9.5 mg/dL (8.5-10.1); CARBON DIOXIDE 30.2 mmol/L (21.0-32.0); CREATININE - SERUM 2.2 mg/dL (0.6-1.3); MAGNESIUM - SERUM 2.8 mg/dL (1.8-2.4); PHOSPHOROUS 3.1 mg/dL (2.5-4.9); THYROID STIMULATING HORMONE 1.16 uIU/mL (0.36-3.74)
[2019-10-22 06:47] LABS: POTASSIUM - SERUM 5.3 mmol/L (3.5-5.1)
[2019-10-22 08:24] LABS: HEMATOCRIT 39.9 % (42.0-54.0); HEMOGLOBIN 12.7 g/dL (13.5-17.5); MCH 30.8 pg (26.0-34.0); MCHC 31.8 g/dL (31.0-37.0); MCV 96.8 fL (80.0-100.0); MEAN PLATELET VOLUME 10.3 fL (7.4-10.4); PLATELET COUNT 734 10x3/uL (130-400); RBC 4.12 10x6/uL (4.20-6.10); RDW 14.7 % (11.5-14.5)
--- NOTE | 2019-10-22 09:07 | NUR ---
0728 RECIEVED REPORT AT BEDSIDE (OUTSIDE ROOM) PT SEEMS AGGITATED AND IS IN RESTRAINTS. 0820 SHIFT ASSESSMENT COMPLETE, PLEASE SEE FLOW SHEETS FOR DETAILS. TOLERATED MEDICATIONS PO WELL, SOME EFFORT TO SWALLOW DUE TO DRY MOUTH, BUT WAS SUCCESSFUL. PLACED ON 10 L HIGH FLOW NC FOR MED ADMINISTRATION. TOTAL TIME OFF BIPAP APPROX 2 MINUTES, DESAT NOTED, ONCE PILLS SWALLOWED BIAPAP IMMEDIATELY REPLACED. INSTRUCTED ON DEEP BREATHING, PATIENT DEMONSTRATED. 0845 CALL FROM LAB STATING CONVOLESCENT PLASMA READY, WILL PAGE VY. 0900 VY PAGED. 0905 VY GAVE ORDERS TO GIVE PLASMA.
[2019-10-22 09:19] LABS: LYMPHOCYTES 3 % (15-50); MONOCYTES 4 % (2-11); NEUTROPHILS 90 % (40-80); PLATELET ESTIMATE INCREASED; SCHISTOCYTES OCC; TEAR DROP CELLS OCC
[2019-10-22 10:08] LABS: INR 9.4 (0.85-1.17); PROTIME 73.7 SECONDS (11.6-15.0)
--- NOTE | 2019-10-22 10:21 | NUR ---
DR VELEZ ON UNIT, NOTIFIED OF CRITICAL LAB, NO FURTHER ORDERS AT THIS TIME.
--- NOTE | 2019-10-22 10:59 | NUR ---
Nutrition follow-up: Diet: Renal PO intake very poor 2/2 SOB; BIPAP Labs reviewed WT: 239# RDN will send Ensure with meals RDN following.
--- NOTE | 2019-10-22 12:06 | NUR ---
1100 REASSESSMENT COMPLETE, NO CHANGES TO NOTE, SEE FLOW SHEET. 1135 COVID-19 CONVALESCENT PLASMA STARTED - FINISHED 1150, TOLERATED WELL. 1200 CHANGED TUBING FOR IVF.
--- NOTE | 2019-10-22 16:30 | NUR ---
1300 HEMODYNAMICALLY STABLE. NOT TOLERATING BIPAP OFF FOR MORE THAN 30 SECONDS. ABLE TO SWALLOW PO MEDS WELL.
--- NOTE | 2019-10-22 16:31 | NUR ---
1500 REASSESSMENT COMPLETE, PLEASE SEE FLOW SHEETS FOR DETAILS. STABLE AT THIS TIME, WILL CONTINUE TO MONITOR.
--- NOTE | 2019-10-22 17:00 | NUR ---
PATIENT AWAKE WATCHING TV. TOLERATED PO MED WELL WITH DRINKS OF WATER. BIPAP ON DIRECTLY AFTER AND IN BETWEEN SIPS. NOT TOLERATING BEING OFF BIPAP WELL. HEMODYNAMICALLY STABLE. WILL CONTINUE PLAN OF CARE.
[2019-10-23] VITALS (30 sets, daily range): BP systolic 60–157; BP diastolic 39–88
[2019-10-23 06:11] LABS: HEMATOCRIT 37.2 % (42.0-54.0); HEMOGLOBIN 11.4 g/dL (13.5-17.5); MCH 29.8 pg (26.0-34.0); MCHC 30.6 g/dL (31.0-37.0); MCV 97.1 fL (80.0-100.0); PLATELET COUNT 765 10x3/uL (130-400); RBC 3.83 10x6/uL (4.20-6.10); RDW 14.9 % (11.5-14.5); WBC 33.2 10x3/uL (4.8-10.8)
[2019-10-23 07:19] LABS: ANION GAP 10.1 mmol/L (8-16); CALCIUM 8.3 mg/dL (8.5-10.1); CARBON DIOXIDE 32.6 mmol/L (21.0-32.0); CREATININE - SERUM 2.3 mg/dL (0.6-1.3); POTASSIUM - SERUM 4.7 mmol/L (3.5-5.1)
[2019-10-23 07:37] LABS: INR 3.34 (0.85-1.17); PROTIME 33.2 SECONDS (11.6-15.0)
[2019-10-23 07:42] LABS: LYMPHOCYTES 7 % (15-50); NEUTROPHILS 93 % (40-80); PLATELET ESTIMATE INCREASED
--- NOTE | 2019-10-23 08:39 | NUR ---
0700 REPORT RECEIVED FROM PAVAN LAW RESEARCHER COMPLETE BPAP TURNED UP TO 100% BY RT
--- NOTE | 2019-10-23 09:40 | NUR ---
BIPAP SETTINGS INCREASED PER DR MCCLELLAN 29/09 100%
--- NOTE | 2019-10-23 14:55 | NUR ---
1030 RESPIRATIONS INCREASD INTO THE 'S DR MCCLELLAN MADE AWARE PLANS ON INTUBATION CONSULT FOR ANESTHESIA TO INTUBATE, AND PLACE ART LINE AND CENTRAL LINE
--- NOTE | 2019-10-23 14:59 | NUR ---
1230 RESTING QUIETLY WITH EYES CLOSED
--- NOTE | 2019-10-23 15:00 | NUR ---
1430 DR PERRY CAME BY AND SAID HE WILL RETURN SOON HE CAN GET AAWAY FROM SURGERY.
--- NOTE | 2019-10-23 16:35 | NUR ---
1500 DR PERRY PRESENT AND PREPARING FOR INTUBATION VERSED 2MG GIVEN IV PREOP DR PERRY BROUGHT HIS OWN PROPOFOL
--- NOTE | 2019-10-23 16:37 | NUR ---
1600 RIGHT SUB CLAVIAN PLACED BY ANESTHESIA AND ALSO LEFT RADIAL ART LNE PLACED AND SECURED BY MD OGT PLACED ORDERED STAT CXR DONE ETT SIZE 8.0
--- NOTE | 2019-10-23 19:20 | NUR ---
SHIFT ASSESSMENT COMPLETE, PT SEDATED ON VENT, ALL PPP, VSS, WILL CON'T TO MONITOR
[2019-10-24] VITALS (76 sets, daily range): BP systolic 58–157; BP diastolic 35–68
[2019-10-24 06:30] LABS: CALCIUM 7.7 mg/dL (8.5-10.1); CARBON DIOXIDE 27.1 mmol/L (21.0-32.0); MAGNESIUM - SERUM 2.8 mg/dL (1.8-2.4); PHOSPHOROUS 6.1 mg/dL (2.5-4.9); POTASSIUM - SERUM 5.1 mmol/L (3.5-5.1)
[2019-10-24 07:08] LABS: CREATININE - SERUM 2.9 mg/dL (0.6-1.3)
[2019-10-24 07:21] LABS: HEMATOCRIT 32.9 % (42.0-54.0); HEMOGLOBIN 9.9 g/dL (13.5-17.5); MCH 30.1 pg (26.0-34.0); MCHC 30.1 g/dL (31.0-37.0); MEAN PLATELET VOLUME 9.9 fL (7.4-10.4); PLATELET COUNT 584 10x3/uL (130-400); RBC 3.29 10x6/uL (4.20-6.10); RDW 15.1 % (11.5-14.5)
[2019-10-24 08:10] LABS: LYMPHOCYTES 1 % (15-50); MONOCYTES 3 % (2-11); NEUTROPHILS 94 % (40-80)
[2019-10-24 08:11] LABS: PLATELET ESTIMATE INCREASED; POLYCHROMASIA OCC
--- NOTE | 2019-10-24 10:47 | NUR ---
puga cath leaking on to linens. LINENS CHANGED AND PT BATHED. FC FLUSHED AND FLUSH COMMING BACK OUT. FC CHANGED [employer].
--- NOTE | 2019-10-24 11:30 | EC ---
PATIENT:BERNARDO TRUJILLO DATE OF SERVICE: 10/18/19 SEX: M MEDICAL RECORD: [id number] DATE OF : 47 LOCATION:[place] [address] AGE OF PATIENT: 74 ADMISSION DATE: 10/18/19 REFERRING PHYSICIAN: INTERPRETING PHYSICIAN: SHIRLEY LI MD ECHOCARDIOGRAM REPORT ECHO CHARGES 4 ECHO COMPLETE Date: 10/19/19 CLINICAL DIAGNOSIS: AVR ECHOCARDIOGRAPHIC MEASUREMENTS (adult normal given) AC root (d.<3.7cm) 3.8 cm LV Septum d (<1.2 cm> 1.4 cm Valve Excursion 1.2 cm LV Septum (systole) 2.3 cm Left Atria (s.<4.0cm> 2.7 cm LVPW d(<1.2cm) 1.5 cm RV (d.<2.3cm) 2.4 cm LVPW (sytole) 2.3 cm LV diastole(<5.6CM) 7.0 cm MV E-F(>70mm/sec) cm LV systole 4.1 cm LVOT Diameter 1.8 cm MV exc.(>10mm) cm Est.ejection fraction (50-75%) % DOPPLER: LVIT cm/sec A 125 cm/sec E 100 cm/sec LA cm/sec RVSP 19.1 mmHg LVOT 119 cm/sec AOP1/2T m/s Asc. Ao 184 cm/sec RVOT 61.0 cm/sec RA cm/sec PA 96.0 cm/sec AV Gradient Peak 14.0 mmHg AV Mean 6.8 mmHg AV Area 1.9 cm MV Gradient Peak 5.6 mmHg MV Mean 2.1 mmHg MV Area cm COMMENTS: Medical Chemist: 1 LAVONNE BEAROE Straddle Bug: 3 Dr. Shine TAPE# PACS Pericardial Effusion N DATE OF SERVICE: Adequate 2D, color flow imaging, spectral Doppler, and M-Mode. No LVH. LV internal dimension is dilated. LV is globally hypokinetic with reduced EF, estimated EF 20% to 25%. Tissue prosthetic aortic valve is noted with acceptable Doppler velocity and no more than mild AI by color flow imaging. Left atrium is normal at 3.7 cm. Mitral valve shows no prolapse. Trace MR. Right-sided chambers are grossly normal. Trace TR. ECHOCARDIOGRAM REPORT [id number] BERNARDO TRUJILLO TRANSINT:[id number] Voice Confirmation ID: [id number] DOCUMENT ID: [id number] SHIRLEY LI MD at 1130 CC: [id number] DICTATION DATE: 10/20/19 1341 PROFESSOR OF BIOLOGICAL SCIENCES: 10/20/19 1611 ADM IN [place] [id number] [place] [address]
--- NOTE | 2019-10-24 12:29 | NUR ---
Nutrition follow-up: Pt now intubated, sedated OGT in place Propofol @ 3.9 ml/hr Labs: BUN: 112, Cr: 2.9, PO4: 6.0, M.8 Will need nutrition support started when medically feasible. RDN following.
--- NOTE | 2019-10-24 17:16 | NUR ---
COVID FFP GIVEN. PT AMELIA WELL.
--- NOTE | 2019-10-24 20:06 | NUR ---
[facility] AT [facility] CALLED FOR UPDATE
[2019-10-25] VITALS (101 sets, daily range): BP systolic 88–138; BP diastolic 34–77
[2019-10-25 01:10] LABS: CREATININE - URINE 37.1 mg/dL (30-125); PRO/CRE RATIO URINE 1.4 mg/g
[2019-10-25 05:43] LABS: HEMATOCRIT 32.5 % (42.0-54.0); HEMOGLOBIN 9.4 g/dL (13.5-17.5); RBC 3.15 10x6/uL (4.20-6.10); WBC 32.8 10x3/uL (4.8-10.8)
[2019-10-25 05:44] LABS: BASOPHILS 0 % (0-2); EOSINOPHILS 0 % (0-7); LYMPHOCYTES 1.7 % (15-50); MCH 29.8 pg (26.0-34.0); MCHC 28.9 g/dL (31.0-37.0); MCV 103.2 fL (80.0-100.0); MEAN PLATELET VOLUME 10.3 fL (7.4-10.4); NEUTROPHILS 94.3 % (40-80); PLATELET COUNT 561 10x3/uL (130-400); RDW 15.4 % (11.5-14.5)
[2019-10-25 05:57] LABS: INR 1.66 (0.85-1.17); PROTIME 19.4 SECONDS (11.6-15.0)
--- NOTE | 2019-10-25 06:13 | NUR ---
2120- ATTEMPTED TO CALL [facility] ON CONTACT FOR UPDATE BUT PHONE NOT WORKING 34- STARTED PULMOCARE AT 10ML/HR PER ORDRES 0600- INCREASED PULMOCARE TO 20ML/HR PER ORDERS. RESIDUAL OF 15ML.
[2019-10-25 06:15] LABS: ALBUMIN 2.2 g/dL (3.4-5.0); ANION GAP 9.5 mmol/L (8-16); BILIRUBIN - DIRECT 0.18 mg/dL (0.00-0.30); BILIRUBIN - INDIRECT 0.25 mg/dL (0.00-1.00); BILIRUBIN - TOTAL 0.43 mg/dL (0.2-1.3); CALCIUM 7.6 mg/dL (8.5-10.1); CREATININE - SERUM 2.7 mg/dL (0.6-1.3); MAGNESIUM - SERUM 2.8 mg/dL (1.8-2.4); PHOSPHOROUS 5.5 mg/dL (2.5-4.9); POTASSIUM - SERUM 5.5 mmol/L (3.5-5.1); PROTEIN - SERUM 6.8 g/dL (6.4-8.2); THYROID STIMULATING HORMONE 0.73 uIU/mL (0.36-3.74)
--- NOTE | 2019-10-25 15:59 | NUR ---
VENT CHANGES MADE BY RT AND DR MCCLELLAN ON ROUNDS. TF CHANGED TO NEPRO RT;HYPERKALEMIA.
[2019-10-26] VITALS (75 sets, daily range): BP systolic 79–131; BP diastolic 11–76
--- NOTE | 2019-10-26 04:42 | NUR ---
NO RESIDUALS. INCREASED NEPRO TO 40 ML/HR AT [facility]
--- NOTE | 2019-10-26 04:47 | NUR ---
[facility] CALLED FOR UPDATE, ANSWERED QUESTIONS
[2019-10-26 06:37] LABS: HEMATOCRIT 30.7 % (42.0-54.0); HEMOGLOBIN 9.1 g/dL (13.5-17.5); MCHC 29.6 g/dL (31.0-37.0); MCV 101.3 fL (80.0-100.0); MEAN PLATELET VOLUME 10.4 fL (7.4-10.4); PLATELET COUNT 511 10x3/uL (130-400); RBC 3.03 10x6/uL (4.20-6.10); RDW 15.6 % (11.5-14.5); WBC 33.8 10x3/uL (4.8-10.8)
[2019-10-26 06:56] LABS: ANION GAP 10.1 mmol/L (8-16); CALCIUM 7.6 mg/dL (8.5-10.1); CARBON DIOXIDE 28.6 mmol/L (21.0-32.0); CREATININE - SERUM 2.6 mg/dL (0.6-1.3); MAGNESIUM - SERUM 3.1 mg/dL (1.8-2.4); PHOSPHOROUS 3.5 mg/dL (2.5-4.9); POTASSIUM - SERUM 5.7 mmol/L (3.5-5.1); VANCOMYCIN - RANDOM 20.3 ug/mL (10.0-20.0)
[2019-10-26 08:45] LABS: LYMPHOCYTES 6 % (15-50); MONOCYTES 2 % (2-11); NEUTROPHILS 90 % (40-80); PLATELET ESTIMATE INCREASED
--- NOTE | 2019-10-26 13:18 | NUR ---
PER DR MCCLELLAN, SEDATE PT TO WHERE HE IS NOT BREATHING OVER VENT. SEDATION TITRATED TO ORDERS, SEE IV FLOWSHEET. NOTED WITH INCREASE SEDATION THEN PT BEGINS TO HAVE HYPOTENSION WITH SBP LOW [address] MCCLELLAN NOTIFIED OF THIS. ORDERS RECIEVED FOR 250 ML BOLUS X 2 (=500ML BOLUS TOTAL) AND TO CHANGE D5 1/2 NS TO NS WITH RATE 200ML/HR. WILL CONTINUE TO CLOSELY OBSERVE.
--- NOTE | 2019-10-26 16:48 | NUR ---
NO ACUTE DISTRESS NOTED. VSS. LEVOPHED, FENTANYL, AND DIPROVAN TITRATED TO ORDER. RESPIRATIONS CURRENTLY AT RATE OF VENT, PT NOT BREATHING OVER VENT PER DR MCCLELLAN ORDERS. WILL CONTINUE PLAN OF CARE.
--- NOTE | 2019-10-26 18:23 | NUR ---
CVP SET UP PER DR MCCLELLAN ORDERS. CVP IS 10.
[2019-10-27] VITALS (95 sets, daily range): BP systolic 75–134; BP diastolic 29–59
[2019-10-27 05:52] LABS: BASOPHILS 0.1 % (0-2); EOSINOPHILS 0 % (0-7); HEMATOCRIT 31.2 % (42.0-54.0); HEMOGLOBIN 9.1 g/dL (13.5-17.5); IMMATURE GRANULOCYTES 0.6 % (0-5); MCH 30.1 pg (26.0-34.0); MCHC 29.2 g/dL (31.0-37.0); MCV 103.3 fL (80.0-100.0); MEAN PLATELET VOLUME 10.7 fL (7.4-10.4); MONOCYTES 2.2 % (2-11); NEUTROPHILS 95.1 % (40-80); PLATELET COUNT 446 10x3/uL (130-400); RBC 3.02 10x6/uL (4.20-6.10); RDW 15.8 % (11.5-14.5); WBC 37.9 10x3/uL (4.8-10.8)
[2019-10-27 06:38] LABS: ALBUMIN 1.8 g/dL (3.4-5.0); ANION GAP 11.7 mmol/L (8-16); BILIRUBIN - TOTAL 0.26 mg/dL (0.2-1.3); CALCIUM 7.5 mg/dL (8.5-10.1); CARBON DIOXIDE 24.2 mmol/L (21.0-32.0); CREATININE - SERUM 2.7 mg/dL (0.6-1.3); MAGNESIUM - SERUM 2.9 mg/dL (1.8-2.4); PHOSPHOROUS 3.7 mg/dL (2.5-4.9); POTASSIUM - SERUM 5.9 mmol/L (3.5-5.1); PROTEIN - SERUM 6.1 g/dL (6.4-8.2); VANCOMYCIN - RANDOM 13.2 ug/mL (10.0-20.0)
--- NOTE | 2019-10-27 14:00 | NUR ---
Nutrition follow-up: Pt intubated, sedated with propofol @ 35.9 ml/hr Nepro infusing via OGT @ goal rate of 40 ml/hr Labs reviewed; Na, Cl high Wt: 232# Recommend increasing H2O flush to 25 ml q hour RDN following.
[2019-10-28] VITALS (93 sets, daily range): BP systolic 98–168; BP diastolic 38–79
[2019-10-28 05:48] LABS: HEMATOCRIT 31.3 % (42.0-54.0); HEMOGLOBIN 9.2 g/dL (13.5-17.5); MCH 30.2 pg (26.0-34.0); MCHC 29.4 g/dL (31.0-37.0); MCV 102.6 fL (80.0-100.0); MEAN PLATELET VOLUME 11.5 fL (7.4-10.4); PLATELET COUNT 418 10x3/uL (130-400); RBC 3.05 10x6/uL (4.20-6.10); RDW 16.1 % (11.5-14.5); WBC 38.9 10x3/uL (4.8-10.8)
[2019-10-28 06:31] LABS: ANION GAP 17.5 mmol/L (8-16); CALCIUM 7.6 mg/dL (8.5-10.1); CREATININE - SERUM 2.8 mg/dL (0.6-1.3)
[2019-10-28 06:34] LABS: POTASSIUM - SERUM 6.5 mmol/L (3.5-5.1)
--- NOTE | 2019-10-28 07:47 | NUR ---
POTASSIUM LEVEL NOTED 6.5. DR SHOEMAKER NOTIFIED OF THIS, STATED HE WILL PLACE ORDERS OF BICARB, NO FURTHER ORDERS RECIEVED.
[2019-10-28 07:52] LABS: LYMPHOCYTES 1 % (15-50); MONOCYTES 2 % (2-11); NEUTROPHILS 95 % (40-80); PLATELET ESTIMATE NORMAL
--- NOTE | 2019-10-28 09:46 | NUR ---
LYING IN BED ON VENT AT THIS TIME. VSS. NO ACUTE DISTRESS NOTED. SEDATION MEDICATION AND LEVOPHED TITRATED TO ORDER. TOTAL LINEN CHANGE PERFORMED. WILL CONTINUE PLAN OF CARE.
--- NOTE | 2019-10-28 14:09 | NUR ---
40ML RESIDUAL NOTED TO OGT.
--- NOTE | 2019-10-28 14:55 | NUR ---
ABG RESULTS CALLED IN TO RENAL CONTROL CLERK FOOD AND BEVERAGE JERMAIN. NOTED POTASSIUM LEVEL HAS DECREASED, NO NEW ORDERS REGARDING POTASSIUM. ORDER RECIEVED FOR SLIDING SCALE Q6H LOW RESISTANCE FOR BLOOD GLUCOSE OF 301. [address] PLACE ORDERS.
--- NOTE | 2019-10-28 16:08 | NUR ---
ATTEMPTED TO CALL PTS FAMILY TO PROVIDE UPDATES. CALLED EMERGENCY CONTACT [facility] AT [phone]. NOTED RECIEVED MESSAGE THAT STATED THE NUMBER WAS NOT A WORKING NUMBER. WILL UPDATE EMERGENCY CONTACT INFORMATION WHEN RECIEVE CALL FROM PTS FAMILY. WILL CONTINUE PLAN OF CARE.
--- NOTE | 2019-10-28 19:58 | MORECARE ---
CASE MANAGEMENT DISCHARGE SUMMARY PATIENT: BERNARDO TRUJILLO UNIT: [id number] ADM DATE: 10/18/19 AGE: 74 : 46 SEX: M ROOM/BED: D.2313 AUTHOR: RADHAMES MONTES PHYSICIAN: REFERRING PHYSICIAN: CHRISTIANE CERVANTES MD DATE OF SERVICE: 10/28/19 Discharge Plan Patient Name: BERNARDO TRUJILLO [facility] [facility] 1945 Planned Disposition: Nursing Facility [facility] Anticipated Discharge Date: Discharge Date: Expected LOS: Initial Reviewer: [email or web address] Initial Review Date: 10/18/2019 Generated: 10/28/19 8:57 pm Patient Name: BERNARDO TRUJILLO Page [id number] at 8 All edits/amendments must be made on the electronic document DICTATION DATE: 10/28/191956 COURT CLERK: MINERVA 10/28/191956 RPT#: [id number] DC DATE: STATUS: ADM IN [facility] [address] [place] [address] END OF REPORT
--- NOTE | 2019-10-28 20:04 | MORECARE ---
CASE MANAGEMENT DISCHARGE SUMMARY PATIENT: BERNARDO TRUJILLO UNIT: [id number] ADM DATE: 10/18/19 AGE: 74 : 46 SEX: M ROOM/BED: D.2313 AUTHOR: JYOTIDOC PHYSICIAN: REFERRING PHYSICIAN: CHRISTIANE CERVANTES MD DATE OF SERVICE: 10/28/19 Discharge Plan Patient Name: BERNARDO TRUJILLO Facility: [facility]:[place] : 1945 Planned Disposition: Nursing Facility [facility] Cert Anticipated Discharge Date: Discharge Date: Expected LOS: Initial Reviewer: [email or web address] Initial Review Date: 10/18/2019 Generated: 10/28/19 9:04 pm Comments DCP- Discharge Planning Updated by [email or web address]: Loly Cornejo on 10/28/19 7:[address] Patient Name: BERNARDO TRUJILLO Admission Status: ER Accout number: [id number] Admission Date: 10-18-2019 : 1945 Admission Diagnosis:COVID-19 Attending: CHRISTIANE CERVANTES Current LOS: 10 Anticipated DC Date: Planned Disposition: Nursing Facility [facility] Cert Primary Insurance: [facility] Discharge Planning Comments: Patient is a long-term resident at [facility] [phone] in [place]. Patient plans to return there upon discharge. CM will continue to follow and assist as needed with discharge planning / needs. Manager Social Responsibility: Loly Cornejo DCPIA - Discharge Planning Initial Assessment Updated by [email or web address]: Loly Cornejo on 10/28/19 7:58 pm * Is the patient Alert and Oriented? No * PCP Darshan Interiano * [facility] * Preadmission Environment Support Worker [facility] * Facility Name [facility] * List name and contact numbers for known caregivers / representatives who currently or will assist patient after discharge: [facility]- [phone], * Verbal permission to speak to the caregivers and representatives has been obtained from the patient. N/A * Additional services required to return to the preadmission environment? No * Can the patient safely return to the preadmission environment? Yes * Has this patient been hospitalized within the prior 30 days at any hospital? No Last DP export: 10/28/19 6:58 p Patient Name: BERNARDO TRUJILLO Page [id number] at 2004 All edits/amendments must be made on the electronic document DICTATION DATE: 10/28/192003 LVN: MINERVA 10/28/192003 RPT#: [id number] DC DATE: STATUS: ADM IN [facility] [address] [place] [address] END OF REPORT
[2019-10-29] VITALS (60 sets, daily range): BP systolic 96–123; BP diastolic 36–59
[2019-10-29 06:35] LABS: INR 1.33 (0.85-1.17); PROTIME 16.4 SECONDS (11.6-15.0)
[2019-10-29 06:39] LABS: ALBUMIN 1.6 g/dL (3.4-5.0); BILIRUBIN - DIRECT 0.19 mg/dL (0.00-0.30); BILIRUBIN - INDIRECT 0.16 mg/dL (0.00-1.00); BILIRUBIN - TOTAL 0.35 mg/dL (0.2-1.3); CALCIUM 7.4 mg/dL (8.5-10.1); CREATININE - SERUM 3.1 mg/dL (0.6-1.3); HEMATOCRIT 28.5 % (42.0-54.0); HEMOGLOBIN 8.7 g/dL (13.5-17.5); MCH 30.9 pg (26.0-34.0); MCHC 30.5 g/dL (31.0-37.0); MCV 101.1 fL (80.0-100.0); MEAN PLATELET VOLUME 11.6 fL (7.4-10.4); PLATELET COUNT 389 10x3/uL (130-400); POTASSIUM - SERUM 5.6 mmol/L (3.5-5.1); PROTEIN - SERUM 5.6 g/dL (6.4-8.2); RBC 2.82 10x6/uL (4.20-6.10); RDW 16.1 % (11.5-14.5); VANCOMYCIN - RANDOM 24.7 ug/mL (10.0-20.0); WBC 37.4 10x3/uL (4.8-10.8)
[2019-10-29 07:32] LABS: ANION GAP 14.2 mmol/L (8-16); CARBON DIOXIDE 26.4 mmol/L (21.0-32.0)
[2019-10-29 08:30] LABS: LYMPHOCYTES 1 % (15-50); MONOCYTES 1 % (2-11); NEUTROPHILS 97 % (40-80)
[2019-10-29 08:31] LABS: PLATELET ESTIMATE NORMAL
--- NOTE | 2019-10-29 10:37 | NUR ---
RESIDUAL CHECKED. LESS THAN 30ML. MEDICATION GIVEN. TUBE FEEDING STARTED BACK. PT REPOSITIONED. WILL CONTINUE TO MONITOR.
--- NOTE | 2019-10-29 12:25 | NUR ---
CENTRAL LINE DRESSING CHANGED.
--- NOTE | 2019-10-29 12:51 | NUR ---
Nutrition follow-up: Pt remains intubated, sedated with propofol Nepro off 2/2 increased residual overnight; restarted today @ 10 ml/hr Labs reviewed: Na, Cl high; BUN, Cr high, K high Wt: 231# May need to increase tube feeding H2O flush to 30 ml/hr RDN following.
--- NOTE | 2019-10-29 19:30 | NUR ---
REPORT RECIEVED, SHIFT ASSESSMENT COMPLETE, PT IS SEDATED ON VENT, NO NEEDS NOTED, VSS, WILL CON'T TO MONITOR
--- NOTE | 2019-10-29 23:00 | NUR ---
COMPLETE BATH AND LINEN CHANGE, PT TOLERATED WELL
[2019-10-30] VITALS (21 sets, daily range): BP systolic 95–139; BP diastolic 41–80
[2019-10-30 05:13] LABS: BASOPHILS 0.1 % (0-2); EOSINOPHILS 0 % (0-7); HEMATOCRIT 28.2 % (42.0-54.0); HEMOGLOBIN 8.4 g/dL (13.5-17.5); IMMATURE GRANULOCYTES 0.7 % (0-5); LYMPHOCYTES 1.3 % (15-50); MCH 29.6 pg (26.0-34.0); MCHC 29.8 g/dL (31.0-37.0); MCV 99.3 fL (80.0-100.0); MEAN PLATELET VOLUME 11.9 fL (7.4-10.4); MONOCYTES 3.4 % (2-11); NEUTROPHILS 94.5 % (40-80); PLATELET COUNT 405 10x3/uL (130-400); RBC 2.84 10x6/uL (4.20-6.10); RDW 15.7 % (11.5-14.5); WBC 34.6 10x3/uL (4.8-10.8)
[2019-10-30 07:14] LABS: ALBUMIN 1.8 g/dL (3.4-5.0); ANION GAP 14.1 mmol/L (8-16); BILIRUBIN - TOTAL 0.39 mg/dL (0.2-1.3); CALCIUM 7.5 mg/dL (8.5-10.1); CARBON DIOXIDE 27.4 mmol/L (21.0-32.0); CREATININE - SERUM 3.4 mg/dL (0.6-1.3); POTASSIUM - SERUM 5.5 mmol/L (3.5-5.1); PROTEIN - SERUM 5.1 g/dL (6.4-8.2)
--- NOTE | 2019-10-30 11:00 | NUR ---
ATTEMPTED TO CALL THE FAMILY MEMBER. NO ANSWER.
--- NOTE | 2019-10-30 16:00 | NUR ---
ATTEMPTED TO CALL THE FAMILY MEMBER. NO ANSWER.
--- NOTE | 2019-10-30 19:20 | NUR ---
REPORT RECIEVED, SHIFT ASSESSMENT COMPLETE, PT IS SEDATED ON VENT, ALL PPP, VSS, WILL CON'T TO MONITOR
[2019-10-31] VITALS (24 sets, daily range): BP systolic 95–119; BP diastolic 44–68
--- NOTE | 2019-10-31 01:00 | NUR ---
COMPLETE BATH AND LINEN CHANGE, PT TOLERATED WELL
[2019-10-31 04:55] LABS: HEMATOCRIT 28.5 % (42.0-54.0); HEMOGLOBIN 8.6 g/dL (13.5-17.5); LYMPHOCYTES 2.3 % (15-50); MCH 30.3 pg (26.0-34.0); MCHC 30.2 g/dL (31.0-37.0); MCV 100.4 fL (80.0-100.0); NEUTROPHILS 93.4 % (40-80); PLATELET COUNT 359 10x3/uL (130-400); RBC 2.84 10x6/uL (4.20-6.10); RDW 15.6 % (11.5-14.5); WBC 35.1 10x3/uL (4.8-10.8)
[2019-10-31 06:40] LABS: CALCIUM 7.6 mg/dL (8.5-10.1); CARBON DIOXIDE 25.5 mmol/L (21.0-32.0); CREATININE - SERUM 3.6 mg/dL (0.6-1.3); POTASSIUM - SERUM 5.5 mmol/L (3.5-5.1)
[2019-10-31 06:46] LABS: ALBUMIN 1.7 g/dL (3.4-5.0); BILIRUBIN - TOTAL 0.28 mg/dL (0.2-1.3); PROTEIN - SERUM 5.7 g/dL (6.4-8.2)
--- NOTE | 2019-10-31 10:44 | NUR ---
NUTRITION F/U NURSING REPORTS PT TUBE FEEDS CURRENTLY ON HOLD 2* NO BOWEL SOUNDS AND ABDOMINAL DISTENTION. WILL CONTINUE TO MONITOR PT PROGRESS. PROVIDE TUBE FEEDS WHEN RESUMED. RD FOLLOWING
--- NOTE | 2019-10-31 12:15 | NUR ---
DR BERG IN THE UNIT. SEE ORDERS.
--- NOTE | 2019-10-31 22:51 | NUR ---
2100 RESTING WITH EYES CLOSED. NO SIGNS OF DISCOMFORT OR DISTRESS. WILL CONTINUE TO MONITOR
--- NOTE | 2019-10-31 22:51 | NUR ---
1900 BEDSIDE REPORT RECEIVED
--- NOTE | 2019-10-31 23:42 | NUR ---
2300 NO CHANGES NOTED AT THIS TIME
[2019-11-01] VITALS (68 sets, daily range): BP systolic 64–127; BP diastolic 4–358
--- NOTE | 2019-11-01 02:35 | NUR ---
0100 APPLIED NEW DRESSING TO RIGHT LOWER ARM. REPOSITIONED pT TO LEFT SIDE, LEGS ELEVATE. WILL CONTINUE TO MONITOR
[2019-11-01 06:16] LABS: HEMATOCRIT 25.6 % (42.0-54.0); HEMOGLOBIN 7.7 g/dL (13.5-17.5); MCHC 30.1 g/dL (31.0-37.0); MCV 99.6 fL (80.0-100.0); PLATELET COUNT 380 10x3/uL (130-400); RBC 2.57 10x6/uL (4.20-6.10); RDW 15.5 % (11.5-14.5); WBC 31.1 10x3/uL (4.8-10.8)
--- NOTE | 2019-11-01 06:16 | NUR ---
0300 no changes at this time
--- NOTE | 2019-11-01 06:17 | NUR ---
0600 turned pt. to right side. no changes at this time
[2019-11-01 07:07] LABS: LYMPHOCYTES 2 % (15-50); MONOCYTES 3 % (2-11); NEUTROPHILS 95 % (40-80); PLATELET ESTIMATE NORMAL
[2019-11-01 08:56] LABS: ALBUMIN 2.1 g/dL (3.4-5.0); ANION GAP 15.4 mmol/L (8-16); BILIRUBIN - TOTAL 0.34 mg/dL (0.2-1.3); CALCIUM 7.1 mg/dL (8.5-10.1); CARBON DIOXIDE 24.3 mmol/L (21.0-32.0); CREATININE - SERUM 4.3 mg/dL (0.6-1.3); POTASSIUM - SERUM 5.7 mmol/L (3.5-5.1); PROTEIN - SERUM 5.5 g/dL (6.4-8.2)
--- NOTE | 2019-11-01 09:00 | NUR ---
PT BECAME HYPOTENSIVE. DR BERG AT THE PTS BEDSIDE. START LEVOPHED. GIVE 25 ALBUMIN. TYPE AND SCREEN AND GIVE 2 UNITS PRBC FOR LOW H&H.
--- NOTE | 2019-11-01 10:16 | NUR ---
PER DR BERG, GIVE LASIX BETWEEN BLOOD INFUSIONS. PT BE BETTER. WEEING LEVOPHED.
--- NOTE | 2019-11-01 13:04 | NUR ---
BLOOD CONSENT ON THE CHART. PRBC VERIFIED WITH ANOTHER NURSE. PRBC INITIATED.
--- NOTE | 2019-11-01 18:35 | NUR ---
2ND UNIT OF PRBC INFUSED. NO S/SX OF REACTION NOTED. WILL CONT POC/MONITOR.
--- NOTE | 2019-11-01 19:58 | NUR ---
1900 bedside report received. resting in bed quietly, eyes closed, no signs of distress or discomfort.
--- NOTE | 2019-11-01 22:23 | NUR ---
2100 HAD TO INCREASE LEVOPHED, BP WAS 90/36. RECHECKED AND BP IS 106/48 ON 20MCG OF LEVOPHED. WILL CONTINUE TO MONITOR
[2019-11-02] VITALS (96 sets, daily range): BP systolic 83–1321; BP diastolic 39–75
--- NOTE | 2019-11-02 02:15 | NUR ---
2300 HAD TO INCREASE LEVOPHED DO TO BLOOD PRESSURE FALLING, LEVOPHED IS AT 30MCG BLOOD PRESSURE 90/40. WILL CONTINUE TO MONITOR
--- NOTE | 2019-11-02 02:17 | NUR ---
0100 CONTINUEING TO MONITOR BLOOD PRESSURE. NICKIE STILL RUNNING AT 30MCG
--- NOTE | 2019-11-02 03:45 | NUR ---
PT. BLOOD PRESSURE CONTINUES TO DECREASE, STARTED VASOPRESSIN, BP NOW 125/44. WILL CONT. TO MONITOR
--- NOTE | 2019-11-02 04:11 | NUR ---
GURMEET BILLINGSLEY, PT. BLOOD PRESSURE CONTINUED TO FALL AND OXYGEN LEVEL STAYING 80-83%. NEW ORDERS TO START VASOPRESSIN, INCREASE PEEP TO 12, AND INCREASE DOBUTAMINE TO 5. WILL CONTINUE TO MONITOR
[2019-11-02 07:13] LABS: BILIRUBIN - TOTAL 0.46 mg/dL (0.2-1.3); CARBON DIOXIDE 20.4 mmol/L (21.0-32.0); CREATININE - SERUM 4.6 mg/dL (0.6-1.3); VANCOMYCIN - RANDOM 26.6 ug/mL (10.0-20.0)
[2019-11-02 07:16] LABS: ALBUMIN 2.8 g/dL (3.4-5.0)
[2019-11-02 07:17] LABS: ANION GAP 21.6 mmol/L (8-16)
[2019-11-02 10:52] LABS: BASOPHILS 0 % (0-2); EOSINOPHILS 0 % (0-7); HEMATOCRIT 36.7 % (42.0-54.0); HEMOGLOBIN 11.2 g/dL (13.5-17.5); MCH 29.2 pg (26.0-34.0); MCHC 30.5 g/dL (31.0-37.0); MCV 95.8 fL (80.0-100.0); MEAN PLATELET VOLUME 11.9 fL (7.4-10.4); PLATELET COUNT 394 10x3/uL (130-400); RBC 3.83 10x6/uL (4.20-6.10); RDW 18.4 % (11.5-14.5); WBC 34.5 10x3/uL (4.8-10.8)
--- NOTE | 2019-11-02 14:35 | NUR ---
0800 BP DROPPING ZEROED ART LINE
--- NOTE | 2019-11-02 14:36 | NUR ---
1050 INCREASED VASOSPRESSIN TO 0.04 UNITS/MINUTE
--- NOTE | 2019-11-02 14:37 | NUR ---
1240 MAXED OUT ON VASOPRESSIN AND LEVOPHED STARTED PINEDA AT 0.9 MCG/MIN
[2019-11-03] VITALS (15 sets, daily range): BP systolic 60–112; BP diastolic 42–75
--- NOTE | 2019-11-03 03:30 | NUR ---
ECG CHANGES NOTED ON THE MONITOR, JUNCTIONAL RHYTHM NOTED AT THIS TIME, PATIENT 02 SATURATION 89% 100 % FIO2 - SEE FLOWSHEET FOR FULL VENT SETTINGS. REASSESSMENT COMPLETED SEE FOCUSED FLOWSHEETS
--- NOTE | 2019-11-03 03:40 | NUR ---
BLOOD PRESSURE 60/ PALP, RHYTHM CHANGES NOTED, PATIENT UNABLE TO MAINTAIN O2 SATURATION AT THIS TIME. CODE BLUE INITIATED AND CHEST COMPRESSIONS STARTED IMMEDIATELY WITH THE ABSENSE OF PULSE BY PALP AND DOPPLER SEE CODE BLUE SHEET
--- NOTE | 2019-11-03 11:26 | MORECARE ---
CASE MANAGEMENT DISCHARGE SUMMARY PATIENT: BERNARDO TRUJILLO UNIT: [id number] ADM DATE: 10/18/19 AGE: 74 : 47 SEX: M ROOM/BED: D.2313 AUTHOR: JYOTIDOC PHYSICIAN: REFERRING PHYSICIAN: CHRISTIANE CERVANTES MD DATE OF SERVICE: 11/03/19 Discharge Plan Patient Name: BERNARDO TRUJILLO Facility: [facility]:[place] : 1945 Planned Disposition: Nursing Facility [facility]EL Cert Anticipated Discharge Date: Discharge Date: 11/03/2019 Expected LOS: Initial Reviewer: [email or web address] Initial Review Date: 10/18/2019 Generated: 11/03/19 12:25 pm DCP- Discharge Planning Updated by [email or web address]: Loly Cornejo on 10/28/19 7:[address] Patient Name: BERNARDO TRUJILLO Admission Status: ER Accout number: [id number] Admission Date: 10-18-2019 : 1945 Admission Diagnosis:COVID-19 Attending: CHRISTIANE CERVANTES Current LOS: 10 Anticipated DC Date: Planned Disposition: Nursing Facility [facility] Cert Primary Insurance: [facility] Discharge Planning Comments: Patient is a long-term resident at [facility] [phone] in [place]. Patient plans to return there upon discharge. CM will continue to follow and assist as needed with discharge planning / needs. Field Care Coordinator: Loly Cornejo DCPIA - Discharge Planning Initial Assessment Updated by [email or web address]: Loly Cornejo on 10/28/19 7:58 pm * Is the patient Alert and Oriented? No * PCP Darshan Interiano * [facility] * Preadmission Environment Early [employer] Director Mcc * Facility Name [facility] * List name and contact numbers for known caregivers / representatives who currently or will assist patient after discharge: [facility]- [phone], * Verbal permission to speak to the caregivers and representatives has been obtained from the patient. N/A * Additional services required to return to the preadmission environment? No * Can the patient safely return to the preadmission environment? Yes * Has this patient been hospitalized within the prior 30 days at any hospital? No Last DP export: 10/28/19 7:04 p Patient Name: BERNARDO TRUJILLO Page 02323 at 1126 All edits/amendments must be made on the electronic document DICTATION DATE: 11/03/191124 [employer] SUPERVISOR: MINERVA 11/03/191124 RPT#: [id number] DC DATE:11/03/19 STATUS: DIS IN [facility] [address] [place] [address] END OF REPORT
== END 2019-11-03 06:00 | DRG 207 ==
LOC: D.ER 18:03 → D.M2 18:25 → D.ICU 18:25 → D.M2 19:58 → D.ICU 10-19 18:02
PROVIDERS: Emergency Medicine; Family Medicine; Internal Medicine Nephrology; Internal Medicine Pulmonary Disease; ADMIT Family Medicine; ATTEND Family Medicine
PROC: 5A1955Z Respiratory Ventilation, Greater than 96 Consecutive Hours (ICD-10-PCS; principal; 2019-10-23)
PROC: 0BH17EZ Insertion of Endotracheal Airway into Trachea, Via Natural or Artificial Opening (ICD-10-PCS; 2019-10-23)
PROC: 05H533Z Insertion of Infusion Device into Right Subclavian Vein, Percutaneous Approach (ICD-10-PCS; 2019-10-23)
PROC: 03HY32Z Insertion of Monitoring Device into Upper Artery, Percutaneous Approach (ICD-10-PCS; 2019-10-23)
DX: U07.1 COVID-19 (principal); J12.89 Other viral pneumonia; J96.21 Acute and chronic respiratory failure with hypoxia; I50.23 Acute on chronic systolic (congestive) heart failure; N17.0 Acute kidney failure with tubular necrosis; J44.1 Chronic obstructive pulmonary disease with (acute) exacerbation; I13.0 Hypertensive heart and chronic kidney disease with heart failure and stage 1 through stage 4 chronic kidney disease, or unspecified chronic kidney disease; E87.0 Hyperosmolality and hypernatremia; E87.2 Acidosis; D64.9 Anemia, unspecified; F41.8 Other specified anxiety disorders; M19.90 Unspecified osteoarthritis, unspecified site; E03.9 Hypothyroidism, unspecified; E78.5 Hyperlipidemia, unspecified; K21.9 Gastro-esophageal reflux disease without esophagitis; G47.33 Obstructive sleep apnea (adult) (pediatric); N18.9 Chronic kidney disease, unspecified; E87.5 Hyperkalemia; I25.10 Atherosclerotic heart disease of native coronary artery without angina pectoris